=== PATIENT | female | born 1950 | race Caucasian/White ===

== ENCOUNTER → 2018-08-21 06:58 | Outpatient (CLI) | payer MEDICARE, SELFPAY ==
--- NOTE | 2018-08-21 07:03 | BI_ITS ---
MAMMOGRAPHY - BILATERAL SCREENING REASON FOR EXAM: Female, 68 years old. Routine annual screening examination. PERTINENT HISTORY: Non-contributory. TECHNIQUE: Digital bilateral breast sharron (3D mammographic acquisition) in the CC and MLO projections. 2-D mediolateral oblique (MLO) and craniocaudad (CC) views of both breasts were obtained. CAD: Full Field Digital Mammography with Computer Added Detection was performed. COMPARISON: Comparison is made with prior study dated January 16, 2013. FINDINGS: Breast Composition: There are scattered areas of fibroglandular density. There are no dominant masses or suspicious calcifications. Stable small bilateral benign appearing axillary lymph nodes. No other significant abnormalities are identified. There has been no significant change since the prior study. BI/SCREENING MAMM (CAD), BILAT IMPRESSION: Stable bilateral screening mammogram. Yearly follow-up mammogram recommended. (A) ASSESSMENT CATEGORY: BIRADS Category 2: Benign. A letter regarding these results will be sent to the patient by the facility within 30 days. Approximately 10% of breast cancers are not detected by mammography. A normal mammogram should not delay biopsy of a clinically suspicious abnormality. [id number] Electronically Signed: Warren Ayala MD at 8:28 EST Tel [phone], Service support ,
--- OUTSIDE RECORDS SUMMARY | 2018-10-07 02:18 | XMS RPT_ITS ---
:1950 Author Organization [facility] Care Team Providers Name Role Phone Evaristo Bedolla Attending Unavailable Evaristo Bedolla Referring Unavailable Evaristo Bedolla Primary Care Unavailable Evaristo Bedolla Attending Unavailable PROBLEMS PROBLEMS DATE TYPE CONDITION / ATTENDING STATUS SOURCE CODE 06/06/2018 Admitting Unknown / Evaristo Bedolla Active [facility] UNK(Unknown) [facility] Repository PROCEDURES PROCEDURES No Procedure Records FoundRESULTS RESULTS SCREENING MAMM (CAD), Observed: 08/21/2018 Status: F Source: [place] 7:03 AM [facility] REPOSITORY [facility] Imaging Services [address] [place] [address] SCREENING MAMM (CAD), BILAT MR#: [id number] Acct: [id number] Name: MAHESH SAVAGE Rep #: [id number] : 1950 F 68 From: Warren Ayala MD PCP: Evaristo Bedolla MD Status: REG CLI Study: SCREENING MAMM (CAD), BILAT Date of Exam: 08/21/18 Exam# [id number] Ordering Dr: Evaristo Bedolla MD MAMMOGRAPHY - BILATERAL SCREENING REASON FOR EXAM: Female, 68 years old. Routine annual screening examination. PERTINENT HISTORY: Non-contributory. TECHNIQUE: Digital bilateral breast sharron (3D mammographic acquisition) in the CC and MLO projections. 2-D mediolateral oblique (MLO) and craniocaudad (CC) views of both breasts were obtained. CAD: Full Field Digital Mammography with Computer Added Detection was performed. COMPARISON: Comparison is made with prior study dated January 16, 2013. FINDINGS: Breast Composition: There are scattered areas of fibroglandular density. There are no dominant masses or suspicious calcifications. Stable small bilateral benign appearing axillary lymph nodes. No other significant abnormalities are identified. There has been no significant change since the prior study. BI/SCREENING MAMM (CAD), BILAT IMPRESSION: Stable bilateral screening mammogram. Yearly follow-up mammogram recommended. (A) ASSESSMENT CATEGORY: BIRADS Category 2: Benign. A letter regarding these results will be sent to the patient by the facility within 30 days. Approximately 10% of breast cancers are not detected by mammography. A normal mammogram should not delay biopsy of a clinically suspicious abnormality. [id number] Electronically Signed: Warren Ayala MD at 8:28 EST Tel [phone], Service support , CC: Evaristo Bedolla MD [employer] Drawer: Signed CBC W/DIFF Collected: 06/06/2018 Status: F Source: [facility] 10:15 AM [facility] [place] REPOSITORY TYPE CODE TESTS RESULT OUT OF RANGE REFERENCE UNITS LAB L200.47395 4.5-11.0 K/CU MM WBC Normal 4.7 LAB L200.78212 3.90-5.30 M/CU MM RBC Normal 5.09 LAB L200.23405 11.5-15.5 G/DL HGB Normal 15.2 LAB L200.12785 35.0-47.0 % HCT Normal 47.0 LAB L200.58944 80.0-99.0 fl MCV Normal 92.3 LAB L200.79802 32.0-36.0 GM/DL MCHC Normal 32.3 LAB L200.47149 11-14.5 RDW Normal 13.7 LAB L200.41004 9.4-12.4 MPV Normal 10.2 LAB L200.41154 150-450 K/CU MM PLT Normal 260 LAB L200.16341 45-75 % NEUTROPHILS Normal % 61.4 LAB L200.44476 Less than 2 % IMMATURE Normal GRAN % 0.0 LAB L200.68240 20-40 % LYMPH % Normal 25.6 LAB L200.19461 2-10 % MONOCYTE % Normal 9.0 LAB L200.28184 0-5 % EOSINOPHIL Normal % 3.4 LAB L200.46228 0-2 % BASOPHIL % Normal 0.6 LAB L200.93327 2.0-8.3 K/CU MM NEUTROPHIL Normal ABS 2.90 LAB L200.87958 Less than 2 K/CU MM IMMATR GRAN Normal ABS 0.00 LAB L200.21675 0.9-4.4 K/CU MM LYMPH ABS Normal 1.20 LAB L200.75279 0.1-1.1 K/CU MM MONO ABS Normal 0.40 LAB L200.72063 0-0.5 K/CU MM EOS ABS Normal 0.20 LAB L200.46487 0-0.2 K/CU MM BASO ABS Normal 0.00 LAB L200.05794 Less than 1 % NRBC Normal 0.4 Performed By: #### L200.19819 #### [facility] [address] [place] [address] UA COMPLETE Collected: 06/06/2018 Status: F Source: [facility] 10:15 AM [facility] REPOSITORY TYPE CODE TESTS RESULT OUT OF REFERENCE UNITS RANGE LAB L600.85049 UA COLOR Normal Yellow LAB L600.34330 CLEAR UA Normal APPEARANCE Clear LAB L600.23862 1.005-1.030 UA SPEC Normal GRAV 1.017 LAB L600.43146 UA PH Normal 7.0 LAB L600.82312 UA GLUCOSE Normal NEG LAB L600.44008 UA KETONE Normal NEGATIVE LAB L600.87539 UA Normal BILIRUBIN NEGATIVE LAB L600.96005 UA Normal UROBILINOGEN 2.0 LAB L600.36072 NEGATIVE UA PROTEIN Normal NEGATIVE LAB L600.50583 NEGATIVE UA BLOOD Normal NEGATIVE LAB L600.86190 NEGATIVE UA NITRITE Normal NEGATIVE LAB L600.41811 NEGATIVE UA LK Normal ESTERASE NEG Performed By: #### L600.48501 #### [facility] [address] [place] [address] CMP Collected: 06/06/2018 Status: F Source: [facility] 10:15 AM [facility] [place] REPOSITORY TYPE CODE TESTS RESULT OUT OF RANGE REFERENCE UNITS LAB L500.91013 136-145 MMOL/L Normal NA 140 LAB L500.67233 3.5-5.1 MMOL/L Normal K 4.4 LAB L500.89142 98-107 MMOL/L Normal CL 106 LAB L500.10625 21-32 MMOL/L Normal CO2 28 LAB L500.68269 5-16 MMOL/L Normal AGAP 6 LAB L500.48374 70-100 MG/DL Normal GLU 84 Result Comment: 70-100- Normal Fasting; 100-125 Impaired Fasting; greater than 126 on more than one result- Diabetes. ADA guidelines. Results may be falsely elevated after the administration of Sulfapyridine. Results may be falsely depressed after the administration of Sulfasalazine. LAB L500.20301 7-26 MG/DL Normal BUN 19 LAB L500.13772 0.510-0.950 MG/DL Normal CREAT 0.658 Result Comment: Patients receiving either N-Acetylcysteine (NAC) or Metamizole prior to venipuncture, may have falsely depressed results. LAB L500.23721 15-24 High BUN/CREA 29 LAB L500.52078 6.0-8.5 GM/DL Normal TP 7.3 LAB L500.23479 3.2-5.0 GM/DL Normal ALBUMIN 4.2 LAB L500.98238 2.2-4.2 GM/DL Normal GLOBULIN 3.1 LAB L500.97058 0.8-2.0 Normal A/G RATIO 1.4 LAB L500.00797 8.5-10.1 MG/DL Normal CALCIUM TOTAL 9.3 LAB L500.69405 0.2-1.0 MG/DL High BILI TOTAL 1.5 LAB L500.74483 8-34 U/L High SGOT (AST) 35 Result Comment: RESULTS MAY BE FALSELY DEPRESSED AFTER THE ADMINISTRATION OF SULFASALAZINE AND/OR SULFAPYRIDINE. LAB L500.92953 13-61 IU/L Normal SGPT (ALT) 49 Result Comment: RESULTS MAY BE FALSELY DEPRESSED AFTER THE ADMINISTRATION OF SULFASALAZINE AND/OR SULFAPYRIDINE. LAB L500.65316 45-117 U/L Normal ALK PHOS 89 Performed By: #### L500.38308, L500.89506, L500.79744 #### [facility] [address] [place] [address] GFR EST Collected: 06/06/2018 Status: F Source: [facility] 10:15 AM [facility] REPOSITORY TYPE CODE TESTS RESULT OUT OF RANGE REFERENCE UNITS LAB L500.86081 ML/MIN Normal IF non-AFR Greater than AMER 60 LAB L500.60828 ML/MIN Normal IF Greater than AMER 60 Performed By: #### L500.35849, L500.40009, L500.31638 #### [facility] [address] [place] [address] LIPID Collected: 06/06/2018 Status: F Source: [facility] 10:15 AM [facility] REPOSITORY TYPE CODE TESTS RESULT OUT OF RANGE REFERENCE UNITS LAB L500.62276 30-149 MG/DL Normal TRIG 124 Result Comment: Patients receiving either N-Acetylcysteine (NAC) or Metamizole prior to venipuncture, may have falsely depressed results. LAB L500.62507 0-199 MG/DL Normal CHOL 199 LAB L500.05631 GREATER TN 40 MG/DL Normal HDL DIRECT 44 Result Comment: Patients receiving Metamizole prior to venipuncture, may have falsely depressed results. LAB L500.17871 0-129 MG/DL High LDL 130 Result Comment: ___CHOLESTEROL/HDL RATIO RISK___ CHD RISK = Total CHOL LDL HDL (CHOL/HDL) Recommended <200 <130 >35 <3.4 Borderline 200-239 130-159 3.4-4.99 High >240 >160 >5.0 Performed By: #### L500.11671, L500.59508, L500.63323 #### [facility] [address] [place], [place] [id number] # [phone] ALLERGIES ALLERGIES No Allergies Records FoundENCOUNTERS ENCOUNTERS ADMIT/DISCHARGE ACCOUNT ADMITTING ENCOUNTER LOCATION SOURCE NUMBER CLASS 08/21/2018 [id number] Ambulatory Bere Bere 3 [facility] ing:OPBI Repository 06/06/2018 [id number] Ambulatory [address] g:NEGAR Repository PAYERS PAYERS ENCOUNTER GUARANTOR PAYER SUBSCRIBER SOURCE 08/21/2018 MAHESH [address] Insurance:HUMANA REIDENBACHDOB: Community [employer] MEDICARE PPOPolicy [id number] Number: Repository [address]Fno: 330 [id number] [phone] () Date:[id number] [address]AJ: 08/21/2018 Secondary NOT GIVENUNK Bere Insurance:SELF PAY [facility] Number: Effective Repository Date:2018-07-08 06/06/2018 MAHESH Cain [facility] [id number] Insurance:[facility]NA [facility] PPO MCPolicy Repository [address] [place] [address] Number: [id number]: 330 [id number] [phone] (HP) Date:[id number] [address] [address]SQ:
== END ==
PROVIDERS: Family Provider Family Medicine; PCP Family Medicine; Referring Provider Family Medicine; Visit Provider Family Medicine
DX: Z12.31 Encounter for screening mammogram for malignant neoplasm of breast (principal)
CPT/HCPCS: 77063; 77067

== ENCOUNTER → 2019-10-20 12:18 | Outpatient (CLI) | payer MEDICARE, SELFPAY ==
--- NOTE | 2019-10-20 12:21 | BI_ITS ---
MAMMOGRAPHY - BILATERAL SCREENING REASON FOR EXAM: Female, 69 years old. Routine annual screening examination. PERTINENT HISTORY: Non-contributory. TECHNIQUE: Digital bilateral breast leila (3D mammographic acquisition) in the CC and MLO projections. 2-D mediolateral oblique (MLO) and craniocaudad (CC) views of both breasts were obtained. CAD: Full Field Digital Mammography with Computer Added Detection was performed. COMPARISON: Comparison is made with prior study dated August 21, 2018 and January 16, 2013. FINDINGS: Breast Composition: There are scattered areas of fibroglandular density. There are no dominant masses or suspicious calcifications. Stable benign appearing bilateral axillary lymph nodes. No other significant abnormalities are identified. There has been no significant change since the prior study. BI/SCREEN MAMM (CAD) W/LEILA BILAT IMPRESSION: Stable bilateral screening mammogram. Yearly follow-up mammogram recommended. (A) ASSESSMENT CATEGORY: BIRADS Category 2: Benign. A letter regarding these results will be sent to the patient by the facility within 30 days. Approximately 10% of breast cancers are not detected by mammography. A normal mammogram should not delay biopsy of a clinically suspicious abnormality. [id number] Electronically Signed: Warren Ayala, at 13:45 EST , Service support ,
== END ==
PROVIDERS: PCP Family Medicine; Referring Provider Family Medicine; Visit Provider Family Medicine
DX: Z12.31 Encounter for screening mammogram for malignant neoplasm of breast (principal)
CPT/HCPCS: 77063; 77067

== ENCOUNTER 2021-03-09 15:35 | Observation (INO) | payer MEDICARE, SELFPAY ==
--- NOTE | 2021-02-25 07:46 | HP.PCM_ITS ---
History and Physical History and Physical [facility] Patient Name: Betsy Cerna : 1950 From: CHARLETTE DUKE PA-C DATE OF SURGERY: 03/09/2021 SCHEDULED PROCEDURE: left total hip arthroplasty HISTORY OF PRESENT ILLNESS: Preoperative history and physical exam was performed on February 24, 2021. This is a 70-year-old female who is been having ongoing pain in the left hip since 2014. She states her pain has been intermittent, aching, stabbing. She has increased pain going up and down stairs, sitting, and walking. She does have left groin pain that radiates through her whole thigh. Her pain does not extend below her knee. Patient does have history of low back pain. She denies any current numbness or tingling in the bilateral lower extremities. Patient has difficulty with activities of daily living including bathing/showering, getting dressed, housework, and shopping. She has fallen due to the left hip pain. She has difficulty walking down to the mailbox due to the pain. Patient states she has not worn socks over a year due to the difficulty putting them on. The pain does awaken her at night. She has attempted oral medications including prescription for nabumetone which did provide her with some relief for about 1 year but no longer is been providing relief. Patient reports that the pain has been severely affecting her activities of daily living. She has been unable to participate in water aerobics or kari chi for over a year due to the pain. She denies previous surgery on the left hip. Patient has medical history pertinent for depression. She does report having superficial phlebitis after her but reports no history of DVT and was never on any anticoagulation. Patient denies any recent chest pain, shortness of breath, fevers chills or recent infections. We have obtain surgical clearance from the primary care physician Dr. Bedolla. After failing conservative measures and discussing all treatment options, the patient does wish to proceed with a left total hip arthroplasty. REVIEW OF SYSTEMS: ROS: Const: Reports weight change, but denies change in appetite and fever. CV: Denies chest pain, heart murmur and irregular heartbeat. Resp: Denies cough, pneumonia, shortness of breath, tuberculosis and wheezing. GI: Reports diarrhea and heartburn, but denies constipation, nausea, rectal itching, bloody stools and vomiting. : Reports incontinence. Musculo: Reports swelling, but denies leg swelling, pain, trouble walking and weakness. Skin: Denies Raynaud's, history of shingles and tattoo. Neuro: Reports ambulatory dysfunction and numbness/tingling but denies dizziness and tremor. Psych: Denies anxiety, insomnia and stress. Rohit/Lymph: Reports anemia, but denies bleeding/bruising tendency and past transfusion. Reviewed, no changes. PAST MEDICAL HISTORY: Advance Care Plan: No Advance Directives Effective Date: 01/10/2021 PMH: Medical Problems: Arthritis, Depression Phlebitis - WHEN Labrynthitis Accidents: None Surgical Hx: Hysterectomy Anesthesia Complications: None Assistive Devices: Glasses Reviewed and updated. SOCIAL HISTORY: SH: Marital: .Occupation: Retired.Work Status: Retired.Hand Dominance: Right- handed. Personal Habits: Cigarette Use: Never Smoked Cigarettes.Smokeless Tobacco: Never Used Smokeless Tobacco.E-Cigarette Use: Never used.Alcohol: Denies u se.Drug Use: Denies Use.Enjoy Exercising: Exercises 1-3 x/month. Reviewed, no changes. VITALS: Ht: 60 Wt: 273lb Wt k.833 BMI: 53.3 BP: 118/68 Pulse: 68 Resp: 16 T: 97.8 T: 36.6C ALLERGIES: No Known Drug Allergy MEDICATIONS: Sertraline HCL 100 mg 1 by mouth every day, Vitamin C 500 mg 1/2 TAB by mouth every day, Vitamin D3 50 mcg (2000 Ut) 1 by mouth every day, Elderberry 1po qday, Advil 200 mg 4 tablets 1-2x daily as needed PRE-OP EXAM: General appearance:NORMAL Other: Eyes: Conjunctivae and lids: NORMAL Pupils: ERR Ears, Nose, Mouth, and Throat: NORMAL Other: Inspection of lips, teeth and gums: NORMAL Other: Neck: Examination of neck: no masses noted. Respiratory: Assessment of respiratory effort: NORMAL Other: Auscultation of lungs: clear to auscultation no wheezes, rhonchi or rales. Cardiovascular: Auscultation of heart: regular rate and rhythm, no murmurs, gallops or rubs. Exam of carotid arteries: NORMAL Other: Gastrointestinal: Exam of abdomen: soft, nontender, nondistended bowel sounds present. PHYSICAL EXAMINATION: Patient's right hip is cool to touch without erythema or signs of infection. Patient is nontender to palpation over the lateral hip. She does complain of left groin pain. Flexion 70, internal rotation neutral, external rotation 30. Right hip flexion to 90, internal rotation 20, and x-rays are rotation 40. She currently denies any numbness and tingling in the bilateral lower extremities. She does have bilateral lower extremity venous stasis changes of the skin with pitting edema. Currently nontender to palpation throughout the lumbar paraspinals. IMAGING STUDIES: X-rays of the left hip reveal severe [id number] osteoarthritis with joint space narrowing, subchondral sclerosis, subchondral cyst formation in the femoral head. 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 Previous x-rays the lumbar spine revealed disc space narrowing with L4-L5 and L5-S1 with endplate spurring off the anterior lumbar vertebral bodies. IMPRESSION: 1. Severe left hip osteoarthritis 2. Depression 3. Labyrinthitis 4. History of superficial phlebitis 5. Lumbar degenerative disc disease PLAN: I did discuss and review with the patient all treatment options including surgical versus nonsurgical options. Patient does wish to proceed with the above-stated procedure. Potential risks, benefits, and complications of the procedure were discussed in detail including but not limited to , infection, nerve and blood vessel damage, persistent pain, numbness, tingling, paresthesias, blood clot, pulmonary embolism, and requirement for possible further surgery. The patient expressed full understanding and has no further questions for the doctor. Patient does agree to proceed with the above-stated procedure and has signed the surgery consent form. We discussed the current risks associated with COVID 19. This does include the risk of exposure while in the hospital. Patient was reassured local hospitals have low infection rates and are taking all necessary precautions to avoid exposure to patients. In addition, we discussed strategies that can be used to help limit exposure including those that limit the patient's time in the hospital. Also using strategies to limit the patient's need for continued inpatient services after being discharged from the hospital. Patient was notified that we will need to comply with any screening or testing the hospital wishes to perform or that surgery may be delayed for any positive results. This dictation was created using voice recognition software. Phonetic and/or grammatical errors may exist. ___ I have re-examined the patient. There are no clinical changes since date of exam. ___ See progress notes for changes. ___ Dictated on admission Date: Time: Signature:
[2021-03-09] VITALS (9 sets, daily range): BP systolic 97–139; BP diastolic 47–88; PULSE 81–96; RESP 14–18; TEMP 36.2–36.9; O2SAT 92–100; BMI 32.8
[2021-03-09] MEDS: Lactated Ringers 1,000 ML 100 ML IV (08:15)
[2021-03-09 10:31] LABS: Bedside Glucose 100 mg/dL (70-110)
[2021-03-09] MEDS: Acetaminophen 500 MG Tablet 1000 MG PO ×2 (10:38→20:34)
[2021-03-09] MEDS: Celecoxib 200 MG Capsule 400 MG PO (10:38)
[2021-03-09] MEDS: Lactated Ringers 1,000 ML 999 ML IV ×2 (10:39→14:00)
[2021-03-09] MEDS: Gabapentin 600 MG Tablet PO (10:39)
[2021-03-09 10:55] LABS: Magnesium 2.3 mg/dL (1.6-2.6)
[2021-03-09 10:59] LABS: International Normalized Ratio 1.1; Partial Thromboplast Time 28.6 Seconds (24.1-36.2); Prothrombin Time (Protime)PT. 13.1 SECONDS (11.7-14.9)
--- NOTE | 2021-03-09 12:14 | PCM.OPRPT ---
Report of Operation Date of Procedure: 03/09/21 Pre-Operative Diagnosis: Left hip primary osteoarthritis Post-Operative Diagnosis: Left hip primary osteoarthritis Surgery/Procedure Performed:: Left minimally invasive direct anterior hip replacement Description of Surgical Findings:: Stable hip with equal leg lengths Surgeon: Juan M Ramírez sales analytics manager: Aryan Naik Type of Anesthesia: Spinal Anesthesiologist: Trey Ann Special Medications: 2 g Ancef, 1 g TXA at incision, 1 g TXA closure, 10 mg Decadron, joint cocktail (5 mg Duramorph, 30 mL of 0.5% Ropivicaine, 1000 units of epinephrine, 30 mg of Toradol) Specimen's removed: Bony cuts Estimated Blood Loss (mL): 250 Fluids Replaced: 1200 mL crystalloid Description of Procedure: Components used: 1. Accolade 2 Sperry femoral stem size 3 127? 2. Sperry trident 2 acetabular shell size 48 mm 3. Meron X3 polyethylene D 4. Meron Biolox delta 36mm, 2.5mm femoral head Brief history operative indications: 70 yo F who failed conservative measures for their hip osteoarthritis. X-rays were consistent with osteoarthritis including joint space narrowing, osteophyte formation and subchondral cysts. Total hip replacement was discussed with the patient with risks and benefits including but not limited to blood loss, DVTs, PEs, neurovascular damage, dislocation, general risks of anesthesia including loss of life. Patient demonstrated an understanding medical clearance is obtained the patient was consented for surgery. Procedure: On the date of procedure the patient's L hip was marked in the preoperative area. Patient was then taken back to the operating room where anesthesia assumed control of the C-spine and airway and administered anesthetic. Patient was transferred to the operating table and placed in the supine position. The hips were placed at the break of the bed and a sacral bump was placed. L The lower extremity was then prepped out in a sterile fashion using chlorhexidine while the surgeon scrubbed. The PA was vital in the positioning of the patient. Upon reentering the room the left lower extremity was draped in the standard orthopedic fashion and the incision was marked. A timeout was called and everyone agreed upon the side, the site, the procedure be performed, antibody given, and patient's identity. At this time incision was made through skin, subcutaneous tissue, and fat down to fascia. The fascia was then incised and the TFL was retracted laterally. A retractor was placed on the lateral border of the femoral neck. Attention was directed to the inferior portion of the approach and all crossing vessels were identified and appropriately coagulated. A retractor was then placed on the medial portion of the femoral neck. The anterior capsule was then cleared of all soft tissue and then H shaped capsulotomy was made. The retractors were then placed inside the capsule. The femoral neck was identified and a cleanup cut was made. At this time a power corkscrew was used to remove the femoral head. Attention was then turned toward the acetabulum where the soft tissues were appropriately retracted and the acetabulum was sequentially reamed to 48 mm. A 48 mm cup was then selected and impacted into place. Acetabular liner was impacted into place and locking mechanism was verified. The position of the acetabular cup was then verified under live fluoroscopy. Attention was then turned to the femur. Soft tissue releases on the medial and lateral femoral neck were appropriately done, the leg was externally rotated and lateralized. A Nice retractor was placed medially and proximally to the greater trochanter this allowed appropriate visualization and exposure of the femoral canal. Rongeour was then used to remove excess lateral bone. A canal finder and entry broach were used to open the proximal canal. Once we verified we were down the femoral canal we subsequently broached up to a size 3 femur. The appropriate neck was placed in the previously selected head was trialed with a 2.5 mm neck. Traction was pulled and the hip was reduced with internal rotation. Once it was appropriately reduced and stability was checked. There was minimal shuck, equal leg lengths and appropriate stability with hyperextension and external rotation as well as with 90? flexion and internal rotation. Fluoroscopy was then also used to verify the position of the components and leg lengths using the contralateral side for comparison. The trial components were then dislocated the proximal femur was again exposed and the components were removed from the wound. The final components were verified and opened. The wound was copiously irrigated out with normal saline. The acetabulum was checked for any residual debris. The final components were placed and impacted. Traction and internal rotation were again used to reduce the hip. After adequate reduction the hip remained stable with appropriate leg lengths. The final components were once again checked with live fluoroscopy and were found to be satisfactory. The wound was then copiously irrigated with normal saline once more, and hemostasis was obtained. Closure was then done using #1 Vicryl runner to close the fascia. A 2-0 vicryl interuppted sutures were used to close the subcutaneous skin. A 3-0 Monocryl and Steri-Strips were used for final skin closure. A Silverlon dressing was placed. Patient was awakened by anesthesia and transferred to the [facility]. Patient was then transferred to the PACU for recovery. Postoperative plan: Patient will get 24 hours postop antibiotics. Patient will get in-house physical therapy and will be weight-bear as tolerated. Patient will follow up in office in 2 weeks for a wound check and x-rays. Aspirin 81 mg twice daily. During the course of the procedure the physician mat machine operator (PE) played a vital role. Their intimate knowledge of my steps in the procedure aided in safe and expedient completion of the procedure. The PE played a vital rolls in positioning particularly in obtaining the appropriate positioning of the sacral bump. The PE was also vital in the retraction of soft tissues during the exposure and especially the femoral work as this is a vital part of the procedure to prevent complications and fractures. The PE was also vital and protecting soft tissues during times of bony cuts and reaming. He also played a vital role in closure with my direct supervision. The PE was also important during reduction and dislocation of the joint and trials intraoperatively. Complications No intraoperative complications Admit VTE Documentation VTE Present on Admission: No VTE Mechan Device Prophylaxis: SCD's and Thigh High NADEEN Hose VTE Pharm Prophylaxis ordered?: Yes
[2021-03-09] MEDS: dexAMETHasone 10 MG/ML Vial IV (12:25)
--- NOTE | 2021-03-09 12:30 | RAD_ITS ---
STUDY: X-RAY - PELVIS AND LEFT HIP REASON FOR EXAM: Fluoroscopic guidance for left hip arthroplasty. TECHNIQUE: 2 intraoperative images of the pelvis and hip. COMPARISON: Radiographs 09/22/2014. FINDINGS: There is a left hip arthroplasty without evidence of complication. 3.4 seconds of fluoroscopy time was used. Electronically Signed: Jovany Israel MD at 14:54 EDT Tel , Service support , RAD/Hip 1 view with Pelvis
--- NOTE | 2021-03-09 14:15 | RAD_ITS ---
STUDY: X-RAY - PELVIS AND LEFT HIP REASON FOR EXAM: Postop left hip arthroplasty. TECHNIQUE: 2 views of the pelvis and hip. COMPARISON: Radiographs 09/22/2014. FINDINGS: There is postoperative gas in the soft tissues. Normal bilateral superior and inferior pubic rami. Normal pubic symphysis. Normal bilateral ischial tuberosities. There is a left hip arthroplasty without evidence of complication. RAD/Hip Min 2 Views (Portable) IMPRESSION: Uncomplicated left hip arthroplasty. Electronically Signed: Jovany Israel MD at 14:47 EDT Tel , Service support ,
[2021-03-09] MEDS: Lactated Ringers 1,000 ML 125 ML IV (15:11)
--- NOTE | 2021-03-09 16:00 | PCM.PN.HOSP ---
Subjective Subjective 70-year-old female here for left hip replacement secondary to osteoarthritis. Tolerated surgery well. No issues. Objective Data Objective Data Vital Signs: Vital Signs Temp Pulse Resp BP Pulse Ox 97.9 F 86 18 117/47 L 98 03/09/21 15:19 03/09/21 15:19 03/09/21 15:19 03/09/21 15:19 03/09/21 15:19 Oxygen Flow Rate (L/min) 6 Oxygen Delivery Method Room Air Weight: 173 lb 11.588 oz Body Mass Index (BMI) 32.8 Intake & Output: Intake and Output for Last 24 Hours 03/08/21 03/09/21 03/10/21 03:59 03:59 03:59 Intake Total 3534.17 / 3534.17 Output Total 400 / 400 Balance 3134.17 / 3134.17 Lab / Micro Data Labs: Laboratory Results - last 24 hr 03/09/21 03/09/21 03/09/21 10:08 10:17 10:40 PT 13.1 INR 1.1 APTT 28.6 Magnesium 2.3 POC Glucose 100 Radiography Diagnostic Testing: Radiology Impression Hip/Pelvis X-Ray 03/09/21 12:30 Hip X-Ray 03/09/21 14:15 IMPRESSION: Uncomplicated left hip arthroplasty. Electronically Signed: Jovany Israel MD at 14:47 EDT Tel , Service support , Physical Exam Const alert, oriented x3 and no apparent distress General Appearance: cooperative HEENT normocephalic Mouth: dry mucous membranes Eyes PERRL, EOMs intact bilaterally and conjunctivae normal Neck supple and no JVD Resp normal respiratory effort, no retractions, no use of accessory muscles and clear to auscultation bilaterally Auscultation: Negative for crackles, rales, rhonchi or wheezes Cardio regular rate, regular rhythm, S1 normal heart sound, S2 normal heart sound and no murmurs GI soft to palpation, non-tender and non-distended; Negative for hepatosplenomegaly Extremity no clubbing, cyanosis or edema Skin no rashes or lesions noted Skin Narrative: Incision CDI Neuro no focal motor deficits and no sensory deficits noted Psych affect normal Appearance: appropriate Assessment & Plan Assessment/Plan (1) Status post left hip replacement: PLAN: 1. Left total hip replacement 03/09/2021 -Pain per primary -DVT per primary -PT/OT 2. Depression -Stable -Continue Zoloft DVT: Aspirin twice daily Charges/Coding Visit Charges OBSV E&M: 16442 Subsequent observation care L2
[2021-03-09] MEDS: Ensure Surgery 237 ML LIQUID PO (18:00)
[2021-03-09] MEDS: Aspirin 81 MG TAB.CHEW PO (18:01)
[2021-03-09] MEDS: Cefazolin 1 GM/50 ML BAG IV (20:33)
[2021-03-09] MEDS: Senna/Docusate Sodium 1 Tablet 2 TABLET PO (20:34)
[2021-03-10 03:05] VITALS: BP 103/52; PULSE 68; RESP 16; TEMP 36.6; O2SAT 99
[2021-03-10] MEDS: Cefazolin 1 GM/50 ML BAG IV (03:48)
[2021-03-10] MEDS: Acetaminophen 500 MG Tablet 1000 MG PO ×2 (05:53→13:50)
[2021-03-10 06:53] LABS: Hematocrit 36.7 % (37-47); Hemoglobin 12.1 g/dL (12.0-15.0); Mean Corpuscular Hgb 30.1 pg (27.0-32.0); Mean Corpuscular Volume 91.3 fL (81-99); Platelet Count 250 K/mm3 (150-450); RBC Distribution Width CV 13.4 % (11.6-14.6); Red Blood Count 4.02 M/mm3 (4.2-5.4); White Blood Count 14.6 K/mm3 (4.4-11.0)
[2021-03-10 07:22] LABS: Anion Gap 7 (5-15); BUN 13 mg/dL (7-18); BUN/Creat Ratio 21.8 RATIO (10-20); Calcium,Total 8.8 mg/dL (8.5-10.1); Chloride 109 mmol/L (98-107); EST Glomerular Filtration Rate 105 mL/min (>60); Est Glom Filt Rate - Afr Amer 127 mL/min (>60); Estimated Creatinine Clearance 38.94 ml/min; Glucose 120 mg/dL (74-106); Potassium 4.1 mmol/L (3.5-5.1); Sodium Level 138 mmol/L (136-145)
[2021-03-10 07:30] VITALS: BP 98/47; PULSE 66; RESP 16; TEMP 36.6; O2SAT 99
[2021-03-10] MEDS: Ensure Surgery 237 ML LIQUID PO (07:41)
[2021-03-10] MEDS: Aspirin 81 MG TAB.CHEW PO (07:42)
--- NOTE | 2021-03-10 09:04 | PCM.PN.ORT ---
Subjective Subjective The patient was sitting in bedside chair upon examination. Patient denies any chest pain, shortness of breath, dizziness, lightheadedness, nausea or vomiting, or calf pain. Pain is controlled on medications. No adverse overnight events. Overall patient has been doing well. She has been up to the restroom tolerating this well. She has not had physical therapy yet. Objective Data Objective Data Vital Signs: Vital Signs Temp Pulse Resp BP Pulse Ox 97.9 F 66 16 98/47 L 99 03/10/21 07:30 03/10/21 07:30 03/10/21 07:30 03/10/21 07:30 03/10/21 07:30 Oxygen Flow Rate (L/min) 6 Oxygen Delivery Method Room Air Weight: 78.8 kg Body Mass Index (BMI) 32.8 Intake & Output: Intake and Output for Last 24 Hours 03/08/21 03/09/21 03/10/21 23:59 23:59 23:59 Intake Total 4977.50 / 4977.50 700 / 700 Output Total 400 / 400 900 / 900 Balance 4577.50 / 4577.50 -200 / -200 Lab / Micro Data Result Diagrams: 03/10/21 06:30 03/10/21 06:30 Labs: Laboratory Results - last 24 hr 03/09/21 03/09/21 03/09/21 10:08 10:17 10:40 WBC RBC Hgb Hct MCV MCH MCHC RDW Std Deviation RDW Coeff of Nguyen Plt Count MPV PT 13.1 INR 1.1 APTT 28.6 Sodium Potassium Chloride Carbon Dioxide Anion Gap BUN Creatinine Estim Creat Clear Calc Est GFR (MDRD) Af Amer Est GFR (MDRD) Non-Af BUN/Creatinine Ratio Glucose Calcium Magnesium 2.3 POC Glucose 100 03/10/21 03/10/21 06:30 06:30 WBC 14.6 H RBC 4.02 L Hgb 12.1 Hct 36.7 L MCV 91.3 MCH 30.1 MCHC 33.0 RDW Std Deviation 45.0 H RDW Coeff of Nguyen 13.4 Plt Count 250 MPV 10.0 PT INR APTT Sodium 138 Potassium 4.1 Chloride 109 H Carbon Dioxide 22.0 Anion Gap 7 BUN 13 Creatinine 0.60 Estim Creat Clear Calc 38.94 Est GFR (MDRD) Af Amer 127 Est GFR (MDRD) Non-Af 105 BUN/Creatinine Ratio 21.8 H Glucose 120 H Calcium 8.8 Magnesium POC Glucose Radiography Diagnostic Testing: Radiology Impression Hip/Pelvis X-Ray 03/09/21 12:30 Hip X-Ray 03/09/21 14:15 IMPRESSION: Uncomplicated left hip arthroplasty. Electronically Signed: Jovany Israel MD at 14:47 EDT Tel , Service support , Physical Exam Narrative Vital signs stable and afebrile. Patient is able to plantarflex and dorsiflex actively. Sensation is intact to light touch to saphenous, sural, superficial and deep peroneal, and tibial distribution. Dressing is clean dry and intact. Negative Homans bilaterally, negative signs and symptoms of DVT. Const alert, oriented x3 and no apparent distress Assessment & Plan Assessment/Plan (1) Status post left hip replacement: PLAN: 1. S/P direct anterior left total hip arthroplasty POD #1 2. Continue Pain Medications: Tylenol, meloxicam, oxycodone 3. DVT Prophylaxis: Take 81 mg aspirin twice daily for 4 weeks postoperatively for DVT prophylaxis 4. PT/OT: Weightbearing as tolerated 5. H & H: 12.1/36.7, asymptomatic. Postoperative anemia secondary to acute blood loss from surgery without any intra operative complications. 6. Reactive leukocytosis: Currently 14.6, afebrile. Patient did receive Decadron intraoperatively 7. Continue postoperative medical management per medicine 8. Encouraged Incentive Spirometry 9. Disposition: Plan will be for discharge home today as long as patient is medically stable, pain is well controlled, and tolerates therapy. Patient has outpatient physical therapy established. Patient will follow-up per postop instructions. Patient would like her medications sent over to [facility] in [facility]. I have reviewed the [place] Automated Rx Reporting System (OARRS) report for this patient for refill pattern and other prescriber involvement as part of the appropriate surveillance for the provision of acute and chronic controlled medications. The report was requested and reviewed on the date of this entry and was considered in the prescribing process.
--- NOTE | 2021-03-10 09:06 | PCM.DC ---
Discharge Instructions Diet Discharge Diet: No restrictions Activity Discharge Activity: May Not Drive (while taking narcotic pain medications.) May shower in (days): 1 (only if incision is dry and without drainage. Do NOT soak/submerge in tub/pool/webb/stream/hot tub.)) Ice area for (Minutes): 20 (Every 1-2 hours while awake[address] place barrier between ice and skin.) Weight Bearing Status: Weight bearing as tolerated Keep extremity elevated above heart level: Operative Extremity Dressing / Incision Call your doctor if your incision/area has: Continuous Slow Oozing, Sudden Increased Bleeding, Increased Pain/ Swelling, Increased Redness and Foul Smelling Discharge Call your doctor if you observe: Fever of 101 or Higher, Shortness of breath, Chest pain, Calf discomfort and Uncontrolled pain Remove Dressing in: 4 days (Okay to remove dressing on March 14, 2021) Additional Dressing/Incision Instructions:: Follow [facility] Post-op Instructions. Once postoperative dressing has been removed, only use gentle soap and water over the incision. Do not use any ointments, Neosporin, salves, alcohol pads over the incision for 6 weeks postoperatively. Do not submerge underwater for 6 weeks postoperatively. Continue with NADEEN hose/elastic stockings for 2 weeks postoperatively. May remove at nighttime but needs to be placed back on the leg during the day. Do NOT use alcohol with narcotic pain medication. Do NOT make important decisions while taking narcotic medication. If you have problems with taking your medication (rash, itching, nausea, etc.) call the office at once. Follow Up Care Test Results: Test results from this visit will be discussed in further detail at your follow-up appointment, if applicable. Discharge Plan Admission Admit Date/Time: 03/09/21 15:35 Attending Provider: Juan M Ramírez Primary Care Provider: Evaristo Bedolla Consulting Providers: Arun Isaacs Discharge Orders/Prescriptions Prescriptions: New aspirin 81 mg Tablet,Chewable 81 mg PO BIDCM Qty: 60 RF: 0 acetaminophen 500 mg Tablet 1,000 mg PO Q8 Qty: 100 RF: 0 famotidine 20 mg Tablet 20 mg PO DAILY Qty: 30 RF: 0 meloxicam 7.5 mg Tablet 7.5 mg PO BIDCM Qty: 60 RF: 0 oxycodone 5 mg Tablet 5 - 10 mg PO Q4H PRN PRN (Reason: Pain Score 4-10) 4 Days Qty: 48 RF: 0 sennosides-docusate sodium [Stool Softener-Stimulant Laxat] 8.6-50 mg Tablet 2 tab PO BID Qty: 14 RF: 0 Continued sertraline 100 mg Tablet 100 mg PO DAILY RF: 0 ascorbic acid (vitamin C) [Vitamin C] 500 mg Tablet 500 mg PO DAILY RF: 0 elderberry fruit 200 mg Capsule 200 mg PO DAILY RF: 0 cholecalciferol (vitamin D3) [Vitamin D3] 50 mcg (2,000 unit) Capsule 50 mcg PO DAILY RF: 0 Discontinued ibuprofen [Advil Liqui-Gel] 200 mg Capsule 400 mg PO Q8H PRN (Reason: Pain) RF: 0 Referrals / Follow Up: Evaristo Bedolla MD [Primary Care Provider] - Aryan Naik PA-C [PHYSICIAN [employer]] - 03/25/21 1:45 pm Physical,Therapy [Other] - 03/15/21 1:30 pm Disposition Disposition (needs filled in before D/C Order can be placed): Home, Self Care
[2021-03-10] MEDS: Senna/Docusate Sodium 1 Tablet 2 TABLET PO (10:36)
[2021-03-10] MEDS: Ascorbic Acid 500 MG Tablet PO (10:36)
[2021-03-10] MEDS: Famotidine 20 MG Tablet PO (10:36)
[2021-03-10] MEDS: Cholecalciferol (VIT D3) 25 MCG TABLET (1,000 UNITS) 50 MCG PO (10:36)
[2021-03-10] MEDS: Sertraline 100 MG Tablet PO (10:37)
--- NOTE | 2021-03-10 10:40 | CASEMGMT ---
NOHEMI BURRELL Face to Face with patient for initial transition planning/care coordination assessment. RN INDRA introduced self and role at [facility]. Patient lying in bed, alert and oriented. Patient willing to participate in assessment and is able to answer all questions appropriately. Care providers, pharmacy, and demographics verified. Patient wishes to discharge home, and is setup for outpatient therapy at [facility]. Patient states she has no further needs or concerns at this time. CM to follow for discharge planning needs that may arise. PCP: Graeme Specialists: linda Ramírez Pharmacy: [facility] Insurance: indico Prescription Benefit: yes Living Will/HPOA: none LNOK: Living Arrangements: Patient lives with in a mobile home with 4 steps and railing to enter the home. Patient states she was independent for selfcare prior to surgery Transportation: daughter DME/HHC: Patient has shower chair, raised toilet, lift chair, grab bars, hand held shower, hip kit, and walker. Patient is setup with [facility] for outpatient therapy starting Sunday Disposition Plan: Patient to discharge home with outpatient therapy, family support, and follow-up plans in place. Mari TOBAR, RN, CM
[2021-03-10 13:44] VITALS: BP 120/62; PULSE 85; RESP 16; TEMP 36.7; O2SAT 100
== END 2021-03-10 15:15 | disposition home or self-care (01) ==
LOC: SDC 15:59 → MS3 15:59
PROVIDERS: Anesthesiology; Admitting Provider Specialist; PCP Family Medicine; Referring Provider Specialist; Visit Provider Internal Medicine
PROC: (CPT 27284; principal; 2021-03-09 11:35)
DX: M16.12 Unilateral primary osteoarthritis, left hip (principal); F32.9 Major depressive disorder, single episode, unspecified; Z79.899 Other long term (current) drug therapy; H83.09 Labyrinthitis, unspecified ear; M51.36 Other intervertebral disc degeneration, lumbar region
CPT/HCPCS: 27130; 36415; 73501; 73502; 76000; 80048; 82962; 83735; 85027; 85610; 85730; 96365; 96366; 97110; 97116; 97162; 97166; 97530; 97535; 99218; 99251; C1776; J7120; G0378; G0379; G0463

== ENCOUNTER 2022-04-21 17:49 | Emergency (ER) | payer MEDICARE, SELFPAY ==
[2022-04-21 17:50] VITALS: BP 125/77; PULSE 85; RESP 14; TEMP 37.2; O2SAT 97; BMI 31.1
[2022-04-21 18:00] VITALS: BP 125/77; PULSE 85; RESP 14; TEMP 37.2; O2SAT 97
--- NOTE | 2022-04-21 18:26 | EDS_ITS ---
HPI History of Present Illness Chief Complaint: Wound Narrative Narrative: 72-year-old female with no significant medical history presents to the emergency department with concern of infection of the left lower extremity. On 09 April, the patient had a significant laceration to the distal aspect of the tibia on the anterior side. Patient has 12 sutures remaining, patient did go back for redness to the infection site, blister. They did take fluid from the blister. Patient continues to have redness surrounding the area that is warm and tender to the touch. Patient was placed on Augmentin and has been on 4 days. Patient states that over the last 4 days there has not been much improvement. The skin is now black, sutures are still intact. It is more painful, more red. Patient has no drainage from the area peer denies any fevers or chills [facility] Medical History Anemia Anxiety Arthritis Heartburn History of depression History of edema History of IBS Migraine headache Non-smoker Restless legs Shortness of breath on exertion Wears glasses Home Medications ascorbic acid (vitamin C) 500 mg tablet (Vitamin C) 500 mg PO DAILY supplement 02/25/21 [History Last Taken Unknown] cholecalciferol (vitamin D3) 50 mcg (2,000 unit) capsule (Vitamin D3) 50 mcg PO DAILY 02/25/21 [History Last Taken Unknown] elderberry fruit 200 mg capsule 200 mg PO DAILY supplement 02/25/21 [History Last Taken Unknown] sertraline 100 mg tablet 100 mg PO DAILY anxiety 02/25/21 [History Last Taken Unknown] amoxicillin 500 mg-potassium clavulanate 125 mg tablet (Augmentin) 1 tab PO TID 04/21/22 [History Last Taken Unknown] sulfamethoxazole 800 mg-trimethoprim 160 mg tablet (Bactrim DS) 1 tab PO BID #20 tabs 04/21/22 [Rx Last Taken Unknown] tolterodine 2 mg capsule,extended release 24 hr (Detrol LA) 2 mg PO DAILY 04/21/22 [History Last Taken Unknown] Allergy/AdvReac Type Severity Reaction Status Date / Time No Known Allergies Allergy Verified 04/21/22 17:50 Surgical History History of hysterectomy Social History Smoking Status: Never smoker ROS ROS ED ROS Narrative Constitutional: Negative for fever, chills, weight loss, weakness Eyes: Negative for vision loss, vision change, double vision ENT: Negative for any sore throat, ear pain, congestion Cardiovascular: Negative for any chest pain, tightness, palpitations Respiratory: Negative for any cough, sputum production, hemoptysis, dyspnea, dyspnea on exertion, orthopnea Gastrointestinal: Negative for any abdominal pain, nausea, vomiting, diarrhea, constipation, blood in stool, blood in vomit : Negative for any urinary frequency, dysuria, retention, blood in urine Muscle skeletal: Negative for any muscle joint pain, stiffness, myalgias, arthralgias, neck pain, back pain. Pain to the left lower extremity Neurological: Negative for any headache, syncope, numbness or tingling, dizziness Skin: Negative for any rashes, lumps, itching, abrasions, lacerations. Positive healing wound to the left tibia, redness to the area, pain. Psychiatric: Negative for any depression, anxiety, stress, suicidal ideation, homicidal ideation Hematologic: Negative for any easy bruising, excessive bruising, easy bleeding Allergies: Negative for any eczema, hives, rash EXAM Physical Exam Narrative Exam Narrative: Vital signs reviewed. Patient appears well, patient appears nontoxic, vital signs are stable. HEET: Head normocephalic atraumatic, TMs clear bilaterally. Posterior pharynx is clear, moist mucous membranes. Nares clear bilaterally. Neck: Supple with no lymphadenopathy or tenderness. No signs of meningismus, negative jolt sign. Cardiac: Regular rate and rhythm no murmurs gallops or rubs, equal peripheral pulses bilaterally. Respiratory: Lungs clear to auscultation bilaterally. No chest tenderness. Abdomen: Soft, nontender, nondistended. No abdominal bruit or pulsatile masses. No hepatosplenomegaly Extremities: Patient has a wound on the anterior aspect of the distal tibia, there is 12 sutures that are intact. The skin flap shows some eschar, no fluctuance, no abscess. The surrounding area does show cellulitis, there is warmth to the distal patella to the top of the foot. Patient has pain on palpation. She states that over the last 2 to 3 days the redness has stayed the same has not improved. Patient's been on 4 days of Augmentin. Neuro: Cranial nerves II through XII intact, no focal neurological deficits. Skin: Clean dry and intact with no rash, purpura, petechiae, vesicles or pustules. Backs/flank: No CVA tenderness, no midline spinal tenderness, no deformity. Psych: Normal mood and affect. No SI, HI or acute psychosis. Const Vital Signs: 04/21/22 17:50 04/21/22 18:00 Temperature 98.9 F 98.9 F Temperature Source Temporal Temporal Pulse Rate 85 85 Respiratory Rate 14 14 Blood Pressure 125/77 H 125/77 H Blood Pressure Mean 93 93 Pulse Ox 97 97 Oxygen Delivery Method Room Air Room Air Positive well nourished and well developed General Appearance ED: well developed MDM MDM Lab Data Labs: Laboratory Results - last 24 hr 04/21/22 18:35 WBC 7.8 RBC 4.71 Hgb 14.3 Hct 43.5 MCV 92.4 MCH 30.4 MCHC 32.9 RDW Std Deviation 45.4 H RDW Coeff of Nguyen 13.4 Plt Count 287 MPV 9.6 Immature Gran % (Auto) 0.100 Neut % (Auto) 73.5 H Lymph % (Auto) 17.5 L [place] % (Auto) 6.5 Eos % (Auto) 2.0 Baso % (Auto) 0.4 Absolute Neuts (auto) 5.7 Absolute Lymphs (auto) 1.37 Nucleated RBC % 0 Treatment and Re-Evaluation Narrative: Patient appears well, patient appears nontoxic, vital signs are stable. Patient presents to the emergency department with ongoing pain to the wound to the left lower extremity, concerning for furthering infection. Patient's wound does appear to show surrounding cellulitis, patient is on Augmentin which she has taken 4 days with minimal improvement. Patient will receive some basic laboratory values as well as a lactic acid. She will be given IV clindamycin. Patient appears well, patient appears nontoxic, vital signs are stable. Patient's CBC was unremarkable, lactic acid was unremarkable, not believe the patient is septic. Patient is currently on the Augmentin, she did receive IV dose of clindamycin here. She be placed on Bactrim at home and instructed to keep the area clean and dry. She will be referred to the wound center and try to see them as soon as possible. She is instructed to return for worsening redness, fever chills nausea vomiting. Patient did receive a 2 view x-ray of the tibia-fibula, these were interpreted by the ER physician as negative. Patient is happy with the plan of care and is stable for discharge. Discharge Plan Triage Chief Complaint: Wound ED Midlevel Provider: Jeff Godfrey ED Provider: Zaki Saleem Dx/Rx/DC Orders Instructions: Cellulitis, ED Laceration: Infected Repair, ED Wound Check (Infection) Prescriptions: New sulfamethoxazole-trimethoprim [Bactrim DS] 800-160 mg tablet 1 tab PO BID Qty: 20 0RF No Action sertraline 100 mg Tablet 100 mg PO DAILY ascorbic acid (vitamin C) [Vitamin C] 500 mg Tablet 500 mg PO DAILY elderberry fruit 200 mg Capsule 200 mg PO DAILY cholecalciferol (vitamin D3) [Vitamin D3] 50 mcg (2,000 unit) Capsule 50 mcg PO DAILY tolterodine [Detrol LA] 2 mg Capsule,Extended Release 24hr 2 mg PO DAILY amoxicillin-pot clavulanate [Augmentin] 500-125 mg Tablet 1 tab PO TID Primary Care Provider: Evaristo Bedolla Referrals: Evaristo Bedolla MD [Primary Care Provider] - Center,Wound [Non-Staff] - (Please follow-up with soon as possible) Activity Restrictions/Additional Instructions: Please continue your Augmentin, you may add Bactrim. You need to follow-up with the wound care center as soon as possible. Take antibiotics until finished Disposition Disposition: Home, Self Care
--- NOTE | 2022-04-21 18:45 | RAD_ITS ---
STUDY: X-RAY - LEFT TIBIA AND FIBULA REASON FOR EXAM: Female, 72 years old. wound TECHNIQUE: 2 view(s) of the tibia and fibula were obtained. COMPARISON: None. FINDINGS: Normal visualized tibia. Normal visualized fibula. The soft tissue structures are unremarkable. RAD/Tibia & Fibula 2 Views IMPRESSION: Normal x-ray examination of the tibia and fibula. Electronically Signed: Reinier Jo MD at 20:36 EDT ,
[2022-04-21 18:49] LABS: Absolute Lymphocyte Count 1.37 X10^3/uL (0.83-4.51); Absolute Neutrophil Count 5.7 X10^3/uL (2.0-7.7); Basophil# 0.03 X10^3/uL; Basophil% 0.4 % (0-1); Eosinophil# 0.16 X10^3/uL; Hematocrit 43.5 % (37-47); Hemoglobin 14.3 g/dL (12.0-15.0); Lymphocyte # 1.37 X10^3/ul (0.83-4.51); Lymphocyte % 17.5 % (19-41); Mean Corp Hgb Conc 32.9 g/dL (32-36); Mean Corpuscular Hgb 30.4 pg (27.0-32.0); Mean Corpuscular Volume 92.4 fL (81-99); Mean Platelet Vol. 9.6 fl (6.2-12.0); Monocyte# 0.51 X10^3/uL; Monocyte% 6.5 % (0-10); NRBC Flagged by Analyzer 0 % (0-5); Neutrophil # 5.73 X10^3/uL (2.7-7.7); Neutrophil % 73.5 % (47-70); Platelet Count 287 K/mm3 (150-450); RBC Distribution Width CV 13.4 % (11.6-14.6); RBC Distribution Width SD 45.4 fl (35.1-43.9); Red Blood Count 4.71 M/mm3 (4.2-5.4); White Blood Count 7.8 K/mm3 (4.4-11.0)
[2022-04-21 19:02] LABS: Anion Gap 3 (5-15); BUN 18 mg/dL (7-18); BUN/Creat Ratio 30.1 RATIO (10-20); Calcium,Total 9.4 mg/dL (8.5-10.1); Chloride 107 mmol/L (98-107); EST Glomerular Filtration Rate 104 mL/min (>60); Est Glom Filt Rate - Afr Amer 126 mL/min (>60); Estimated Creatinine Clearance 39.63 ml/min; Glucose 90 mg/dL (74-106); Potassium 4.4 mmol/L (3.5-5.1); Sodium Level 139 mmol/L (136-145)
[2022-04-21 19:18] LABS: Lactic Acid 0.4 mmol/L (0.4-1.9)
[2022-04-21] MEDS: Clindamycin 900 MG/50 ML BAG 75 MG IV (19:34)
[2022-04-21 20:43] VITALS: RESP 16
== END 2022-04-21 20:44 | disposition home or self-care (01) ==
PROVIDERS: Nurse Practitioner; Emergency Provider Emergency Medicine; PCP Family Medicine; Visit Provider Emergency Medicine
DX: F41.9 Anxiety disorder, unspecified (principal); S81.812D Laceration without foreign body, left lower leg, subsequent encounter; X58.XXXD Exposure to other specified factors, subsequent encounter; L03.116 Cellulitis of left lower limb; Z79.899 Other long term (current) drug therapy
CPT/HCPCS: 73590; 80048; 83605; 85025; 96365; 99283; J7040

== ENCOUNTER 2022-05-10 10:30 | Outpatient (RCR) | payer MEDICARE, SELFPAY ==
[2022-04-26 10:12] VITALS: BP 149/57; PULSE 86; TEMP 36.6
--- NOTE | 2022-04-26 10:43 | PCM.WC.HP ---
History of Present Illness Date of Service: 04/26/22 Chief Complaint: Follow-up on a left lower leg partial avulsion laceration from a door hinge back on April 09 History of Wound: 72-year-old white female carrying groceries cut her leg did go to the emergency room right away and received sutures for the partial avulsion laceration. Then she returned to the emergency room later when she started develop a hematoma underneath the sutures. The emergency room doctor then drained the clot. And the last time she went to the emergency room is because she thought it looked infected and that was on April 22 and they referred her to the wound center. Patient received clindamycin IV in the emergency department and is currently on Bactrim and Augmentin orally at this time [facility] Medical History Anemia Anxiety Arthritis Heartburn History of depression History of edema History of IBS Migraine headache Non-smoker Restless legs Shortness of breath on exertion Wears glasses Home Medications ascorbic acid (vitamin C) 500 mg tablet (Vitamin C) 500 mg PO DAILY supplement 02/25/21 [History Last Taken Unknown] cholecalciferol (vitamin D3) 50 mcg (2,000 unit) capsule (Vitamin D3) 50 mcg PO DAILY 02/25/21 [History Last Taken Unknown] elderberry fruit 200 mg capsule 200 mg PO DAILY supplement 02/25/21 [History Last Taken Unknown] sertraline 100 mg tablet 100 mg PO DAILY anxiety 02/25/21 [History Last Taken Unknown] amoxicillin 500 mg-potassium clavulanate 125 mg tablet (Augmentin) 1 tab PO TID 04/21/22 [History Last Taken Unknown] sulfamethoxazole 800 mg-trimethoprim 160 mg tablet (Bactrim DS) 1 tab PO BID #20 tabs 04/21/22 [Rx Last Taken Unknown] tolterodine 2 mg capsule,extended release 24 hr (Detrol LA) 2 mg PO DAILY 04/21/22 [History Last Taken Unknown] Allergy/AdvReac Type Severity Reaction Status Date / Time No Known Allergies Allergy Verified 04/21/22 17:50 Surgical History History of hysterectomy Social History Smoking Status: Never smoker ROS Integumentary Integumentary: Reports wounds and other Details: Sutured laceration to her left lower keenan area Vital Signs Vital Signs Vital Signs: 04/26/22 10:12 Temperature 97.9 F Temperature Source Temporal Pulse Rate 86 Blood Pressure 149/57 H Blood Pressure Mean 87 Blood Pressure Source Monitor Blood Pressure Position Semi-Fowlers Blood Pressure Location Right Arm Physical Exam Const oriented x3 General Appearance: cooperative Exam Limitations: no limitations HEENT normocephalic Eyes PERRL Neck full ROM Resp normal respiratory effort Effort and Inspection: able to speak in complete sentences Auscultation: clear to auscultation bilaterally Cardio regular rate and regular rhythm Palpation: normal PMI Rate: regular rate Rhythm: regular rhythm GI Auscultation: normoactive bowel sounds Palpation: soft and no hepatosplenomegaly external exam normal Extremity normal to inspection General Extremity: normal exam except as noted Skin no rashes or lesions noted Skin Narrative: Sutured partial avulsion laceration to the left lower leg. The flap did not take and is more black and loose. Sutures around the edge approximately 14 Neuro oriented x3 Psych Appearance: grossly normal Speech: normal speech Thought Content: normal thought content Judgement: judgement good Debridement Note Debridement Note Wound debrided: Left lower keenan traumatic wound with suture Laterality: Left Type of Debridement: Excisional debridement Anesthesia Used: 5% Lidocaine Gel Depth: in the subcutaneous layer Percentage of wound debrided: 100 Instrument Used: 5mm curette, #15 blade, Forceps and - (Scissors) Tissue Removed: Devitalized tissue and sutures removed 14 Severity: Fat Layer Exposed Amount of bleeding with debridement: Mild Bleeding Controlled with: Compression and gauze Patient tolerated procedure: Patient tolerated procedure well Post-Debridement Measurements and Additional Note: Post-Debridement Measurements/Treatment - Nurse 1 - General Ulcer Assessment Start: 04/26/22 10:12 Freq: Status: Active Protocol: DIMITRI Activity Type Activity Date Activity User E-sign Co-sign Detail Recorded Client Recorded Date Recorded By Document 04/26/22 10:12 VICKY [id number] 04/26/22 10:19 VICKY 04/26/22 10:12 - Today's Visit Information Type of service Initial Visit Arrival Mode Ambulatory Patient Identification Verified (Name & Yes ) Vital Signs Temperature (97.8 F-99.1 F) 97.9 F Temperature Source Temporal Pulse Rate (60-100) 86 Pulse Location Monitor Blood Pressure (90/60-120/80) 149/57 H Blood Pressure Mean 87 Source Monitor Position Semi-Fowlers Blood Pressure Location Right Arm History Since Last Visit- (Skip if this is Patient's initial visit) Have you changed medications since your No last visit? Any new allergies or adverse reactions No Had a fall/change in ADL's that may No increase risk of falls Signs or symptoms of abuse and/or No neglect since last visit Have you been in the hospital since your No last visit? Has dressing in place as prescribed No Has compression in place as prescribed N/A Has offloadiing in place as prescribed N/A Experienced any changes in pain level or No management Left Footwear Regular Shoe Right Footwear Regular Shoe Pain Scale: 0-10 Numeric Is Patient Pain Free? Yes WC - Nurse 1 - General Ulcer Measurement Start: 04/26/22 10:12 Freq: Status: Active Protocol: Activity Type Activity Date Activity User E-sign Co-sign Detail Recorded Client Recorded Date Recorded By Document 04/26/22 10:12 [id number] 04/26/22 10:19 KR 04/26/22 10:12 Wound Center Nurse 1 #1 Left [place] -Current Size (cm) - Length 5 -Current Size (cm) - Width 5.6 -Current Size (cm) - Depth 0.1 -Total Square Cm 28.0 -Wound Margin Distinct, Outline Attached -Necrosis Amt Large (67-100%) -Necrotic Tissue Type Eschar -Texture (Sofie-wound Skin Appearance) Assessed, Scarring -Moisture (Sofie-wound Skin Appearance) No Abnormality, Assessed -Color (Sofie-wound Skin Appearance) No Abnormality, Assessed -Temperature (Sofie-wound Skin No Abnormality Appearance) (Pt Warm) -Tenderness on Palpation (Sofie-wound No Skin Appearance) -Ulcer Cleansing Rinsed/ Irrigated with Saline -Foul Odor after Cleansing No -Anesthetic Used 5% Lidocaine Gel WC - Nurse 2 - General Ulcer CM Notes Start: 04/26/22 10:12 Freq: Status: Active Protocol: Activity Type Activity Date Activity User E-sign Co-sign Detail Recorded Client Recorded Date Recorded By Document 04/26/22 10:28 [id number] 04/26/22 10:39 MW 04/26/22 10:28 Wound Center Nurse 2 -Time 10:28 -Correct Patient Yes -Correct Side, Site, Position Yes -Correct Procedure Yes -Procedure Performed Yes -Type of Procedure Debridement -Clinical Debridement Subcutaneous -Tissue Removed Subcutaneous -Post Debridement (cm) - Length 5.4 -Post Debridement (cm) - Width 4.0 -Post Debridement (cm) - Depth 0.1 -Total Square (Post) (cm) 21.60 -Area of Debridement (cm) - Length 5.4 -Area of Debridement (cm) - Width 4.0 -Total Square (Area) (cm) 21.60 -Tunneling No -Undermining/Tunneling No -Circular Undermining No -Wound/Ulcer Outcome Not Healed -Ulcer Cleansing Rinsed/ Irrigated with Saline -Foul Odor after Cleansing No -Bioengineered Tissue No -Bleeding Controlled with Pressure -Treatment Response Procedure Tolerated Well -Offloading No -Debridement - Subq, 1st 20sq cm Yes -Debridement, SubQ, ea addt'l 20sq cm 1 or part thereof Pain Scale: 0-10 Numeric Is Patient Pain Free? Yes Assessment/Plan Assessment/Plan (1) Traumatic open wound of lower leg with infection: CODE(S): S81.809A - Unspecified open wound, unspecified lower leg, initial encounter; L08.9 - Local infection of the skin and subcutaneous tissue, unspecified PLAN: Wash the lower leg with antibacterial soap and water apply Fibracol to wound base moistened cover with Adaptic and then dry dressing over top every day follow-up in 1 week Wear a Tubigrip double layer to the left leg (2) Nonhealing surgical wound: CODE(S): T81.89XA - Other complications of procedures, not elsewhere classified, initial encounter
[2022-05-03 10:51] VITALS: BP 134/70; PULSE 87; TEMP 36.3
--- NOTE | 2022-05-03 11:55 | PCM.WC.PN ---
History of Present Illness Date of Service: 05/03/22 Chief Complaint: Follow-up on a left lower leg partial avulsion laceration from a door hinge back on April 09 History of Wound: 72-year-old white female carrying groceries cut her leg did go to the emergency room right away and received sutures for the partial avulsion laceration. Then she returned to the emergency room later when she started develop a hematoma underneath the sutures. The emergency room doctor then drained the clot. And the last time she went to the emergency room is because she thought it looked infected and that was on April 22 and they referred her to the wound center. Patient received clindamycin IV in the emergency department and is currently on Bactrim and Augmentin orally at this time Progress of Wound: Wound is healing very well with using Fibracol. No sign of infection surrounding tissue Subjective Subjective Patient is very pleased with healing so far Objective Data Objective Data We will continue using the Fibracol debrided a lot of the scabbing and devitalized tissue that surrounding the wounds edge to keep it from healing properly. No sign of infection noted Vital Signs: Vital Signs Temp Pulse BP 97.3 F L 87 134/70 H 05/03/22 10:51 05/03/22 10:51 05/03/22 10:51 Physical Exam Const oriented x3 General Appearance: cooperative Exam Limitations: no limitations HEENT normocephalic Eyes PERRL Neck full ROM Resp normal respiratory effort Effort and Inspection: able to speak in complete sentences Auscultation: clear to auscultation bilaterally Cardio regular rate and regular rhythm Palpation: normal PMI Rate: regular rate Rhythm: regular rhythm GI Auscultation: normoactive bowel sounds Palpation: soft and no hepatosplenomegaly external exam normal Extremity normal to inspection General Extremity: normal exam except as noted Skin no rashes or lesions noted Skin Narrative: Sutured partial avulsion laceration to the left lower leg. The flap did not take and is more black and loose. Sutures around the edge approximately 14 Neuro oriented x3 Psych Appearance: grossly normal Speech: normal speech Thought Content: normal thought content Judgement: judgement good Debridement Note Debridement Note Wound debrided: Left lower leg keenan area Laterality: Left Type of Debridement: Excisional debridement Anesthesia Used: 5% Lidocaine Gel Depth: in the subcutaneous layer Percentage of wound debrided: 100 Instrument Used: 5mm curette and #15 blade Tissue Removed: Devitalized tissue and fibrin Severity: Fat Layer Exposed Amount of bleeding with debridement: Mild Bleeding Controlled with: Compression and gauze Patient tolerated procedure: Patient tolerated procedure well Post-Debridement Measurements and Additional Note: Post-Debridement Measurements/Treatment WC - Nurse 1 - General Ulcer Assessment Start: 04/26/22 10:12 Freq: Status: Active Protocol: DIMITRI Activity Type Activity Date Activity User E-sign Co-sign Detail Recorded Client Recorded Date Recorded By Document 04/26/22 10:12 KR [id number] 04/26/22 10:19 KR Document 05/03/22 10:51 KR [id number] 05/03/22 10:52 KR 04/26/22 05/03/22 10:12 10:51 WC - Today's Visit Information Type of service Initial Visit Follow-up Visit (Physician/STEEL INSPECTOR ) Arrival Mode Ambulatory Ambulatory Patient Identification Verified (Name & Yes Yes ) Vital Signs Temperature (97.8 F-99.1 F) 97.9 F 97.3 F L Temperature Source Temporal Temporal Pulse Rate (60-100) 86 87 Pulse Location Monitor Monitor Blood Pressure (90/60-120/80) 149/57 H 134/70 H Blood Pressure Mean (mm Hg) 87 91 Source Monitor Monitor Position Semi-Fowlers Semi-Fowlers Blood Pressure Location Right Arm Right Arm History Since Last Visit- (Skip if this is Patient's initial visit) Have you changed medications since your No No last visit? Any new allergies or adverse reactions No No Had a fall/change in ADL's that may No No increase risk of falls Signs or symptoms of abuse and/or No No neglect since last visit Have you been in the hospital since your No No last visit? Has dressing in place as prescribed No Yes Has compression in place as prescribed N/A N/A Has offloadiing in place as prescribed N/A N/A Experienced any changes in pain level or No No management Left Footwear Regular Shoe Regular Shoe Right Footwear Regular Shoe Regular Shoe Pain Scale: 0-10 Numeric Is Patient Pain Free? Yes Yes FLAKITO Chan Nurse 1 - General Ulcer Measurement Start: 04/26/22 10:12 Freq: Status: Active Protocol: Activity Type Activity Date Activity User E-sign Co-sign Detail Recorded Client Recorded Date Recorded By Document 04/26/22 10:12 KR [id number] 04/26/22 10:19 KR Document 05/03/22 10:51 KR [id number] 05/03/22 10:52 KR 04/26/22 05/03/22 10:12 10:51 Wound Center Nurse 1 #1 Left Keenan -Current Size (cm) - Length 5 6.1 -Current Size (cm) - Width 5.6 5 -Current Size (cm) - Depth 0.1 0.2 -Total Square Cm 28.0 30.5 -Exudate Amt Large -Exudate Type Serosanguineous -Wound Margin Distinct, Distinct, Outline Outline Attached Attached -Granulation Amt Medium (34-66%) -Granulation Quality Red -Necrosis Amt Large (67-100%) Medium (34-66%) -Necrotic Tissue Type Eschar Adherent Slough -Texture (Sofie-wound Skin Appearance) Assessed, Assessed, Scarring Scarring -Moisture (Sofie-wound Skin Appearance) No Abnormality, No Abnormality, Assessed Assessed -Color (Sofie-wound Skin Appearance) No Abnormality, No Abnormality, Assessed Assessed -Temperature (Sofie-wound Skin No Abnormality No Abnormality Appearance) (Pt Warm) (Pt Warm) -Tenderness on Palpation (Sofie-wound No Skin Appearance) -Ulcer Cleansing Rinsed/ Rinsed/ Irrigated with Irrigated with Saline Saline -Foul Odor after Cleansing No No -Anesthetic Used 5% Lidocaine 4% Lidocaine Gel Solution,5% Lidocaine Gel WC - Nurse 2 - General Ulcer CM Notes Start: 04/26/22 10:12 Freq: Status: Active Protocol: Activity Type Activity Date Activity User E-sign Co-sign Detail Recorded Client Recorded Date Recorded By Document 04/26/22 10:28 MW [id number] 04/26/22 10:39 MW Document 05/03/22 10:58 MW [id number] 05/03/22 11:02 MW 04/26/22 05/03/22 10:28 10:58 Wound Center Nurse 2 #1 Left Keenan -Time 10:28 10:58 -Correct Patient Yes Yes -Correct Side, Site, Position Yes Yes -Correct Procedure Yes Yes -Procedure Performed Yes Yes -Type of Procedure Debridement Debridement -Clinical Debridement Subcutaneous Subcutaneous -Tissue Removed Subcutaneous Subcutaneous -Post Debridement (cm) - Length 5.4 6.3 -Post Debridement (cm) - Width 4.0 4.0 -Post Debridement (cm) - Depth 0.1 0.2 -Total Square (Post) (cm) 21.60 25.20 -Area of Debridement (cm) - Length 5.4 6.3 -Area of Debridement (cm) - Width 4.0 4.0 -Total Square (Area) (cm) 21.60 25.20 -Tunneling No No -Undermining/Tunneling No No -Circular Undermining No No -Wound/Ulcer Outcome Not Healed Not Healed -Ulcer Cleansing Rinsed/ Rinsed/ Irrigated with Irrigated with Saline Saline -Foul Odor after Cleansing No No -Bioengineered Tissue No No -Bleeding Controlled with Pressure Pressure -Treatment Response Procedure Procedure Tolerated Well Tolerated Well -Offloading No No -Debridement - Subq, 1st 20sq cm Yes Yes -Debridement, SubQ, ea addt'l 20sq cm 1 1 or part thereof Pain Scale: 0-10 Numeric Is Patient Pain Free? Yes Yes - Nurse 3 - General Ulcer D/C NN Start: 04/26/22 10:12 Freq: Status: Active Protocol: Activity Type Activity Date Activity User E-sign Co-sign Detail Recorded Client Recorded Date Recorded By Document 05/03/22 11:11 [facility] [id number] 05/03/22 11:12 [facility] 05/03/22 11:11 Wound Care Nurse 3 #1 Left Keenan -Ulcer Cleansing Rinsed/ Irrigated with Saline -Foul Odor after Cleansing No -Primary Dressing Applied Fibracol Plus 4x4,NonAdherent Contact Layer -Other Dressing drsg per kr international coordinator -Primary Dressing Covered/Secured with Dry Gauze & Roll Gauze, Secured with Tape -Fibracol Plus 4x4 2 Left -Other pt will apply tubi at home Treatment Response Procedure Tolerated Well Pain Scale: 0-10 Numeric Is Patient Pain Free? Yes - Visit Discharge Discharge Condition Stable Ambulatory Status Ambulatory Transportation Private Auto Assessment/Plan Assessment/Plan (1) Traumatic open wound of lower leg with infection: CODE(S): S81.809A - Unspecified open wound, unspecified lower leg, initial encounter; L08.9 - Local infection of the skin and subcutaneous tissue, unspecified PLAN: Wash the lower leg with antibacterial soap and water apply Fibracol to wound base moistened cover with Adaptic and then dry dressing over top every day follow-up in 1 week Wear a Tubigrip double layer to the left leg (2) Nonhealing surgical wound: CODE(S): T81.89XA - Other complications of procedures, not elsewhere classified, initial encounter
[2022-05-10 10:35] VITALS: BP 142/73; PULSE 88; RESP 16; TEMP 35.3
--- NOTE | 2022-05-10 12:38 | PN.PCM_ITS ---
History of Present Illness Date of Service: 05/10/22 Chief Complaint: Follow-up on a left lower leg partial avulsion laceration from a door hinge back on April 09 History of Wound: 72-year-old white female carrying groceries cut her leg did go to the emergency room right away and received sutures for the partial avulsion laceration. Then she returned to the emergency room later when she started develop a hematoma underneath the sutures. The emergency room doctor then drained the clot. And the last time she went to the emergency room is because she thought it looked infected and that was on April 22 and they referred her to the wound center. Patient received clindamycin IV in the emergency department and is currently on Bactrim and Augmentin orally at this time Progress of Wound: Wound is healing very well with using Fibracol. No sign of infection surrounding tissue is well approximated. He is developing skin buds in the center still quite large in surface area we will continue using the Fibracol moistened with Adaptic over top and a double layer Tubigrip to hold in place Subjective Subjective Patient feels it looks better than it did Objective Data Objective Data We cultured for bacteria and anaerobes. Wound is healing but slowly. She was positive over a month ago for bacteria we will recheck to make sure its not slowing down process Responding well to the wound care we will follow her up in another week Vital Signs: Vital Signs Temp Pulse Resp BP O2 Del Method 95.5 F L 88 16 142/73 H Room Air 05/10/22 10:35 05/10/22 10:35 05/10/22 10:35 05/10/22 10:35 05/10/22 10:35 Oxygen Delivery Method Room Air Lab / Micro Data Attestation: I reviewed the patient's lab results. Debridement Note Debridement Note Wound debrided: Left lower leg wound trauma Laterality: Left Type of Debridement: Excisional debridement Anesthesia Used: 5% Lidocaine Gel Depth: in the subcutaneous layer Percentage of wound debrided: 100 Instrument Used: 7mm curette Tissue Removed: Fibrin and devitalized tissue Severity: Fat Layer Exposed Amount of bleeding with debridement: Mild Bleeding Controlled with: Compression and gauze Patient tolerated procedure: Patient tolerated procedure well Post-Debridement Measurements and Additional Note: Post-Debridement Measurements/Treatment FLAKITO - Nurse 1 - General Ulcer Assessment Start: 04/26/22 10:12 Freq: Status: Active Protocol: DIMITRI Activity Type Activity Date Activity User E-sign Co-sign Detail Recorded Client Recorded Date Recorded By Document 04/26/22 10:12 VICKY [id number] 04/26/22 10:19 KR Document 05/03/22 10:51 KR [id number] 05/03/22 10:52 KR Document 05/10/22 10:35 [facility] [id number] 05/10/22 10:43 [facility] 04/26/22 05/03/22 05/10/22 10:12 10:51 10:35 - Today's Visit Information Type of service Initial Visit Follow-up Visit Follow-up Visit (Physician/ACCOUNTING/FINANCE TUTOR (Physician/ACCOUNTING/FINANCE TUTOR ) ) Arrival Mode Ambulatory Ambulatory Ambulatory Transfer Assistance None Patient Identification Verified (Name & Yes Yes Yes ) Patient Requires Transmission-Based No Precautions Vital Signs Temperature (97.8 F-99.1 F) 97.9 F 97.3 F L 95.5 F L Temperature Source Temporal Temporal Temporal Pulse Rate (60-100) 86 87 88 Pulse Location Monitor Monitor Monitor Respiratory Rate (12-18) 16 Respiratory rate source Observation Oxygen Delivery Method Room Air Blood Pressure (90/60-120/80) 149/57 H 134/70 H 142/73 H Blood Pressure Mean (mm Hg) 87 91 96 Source Monitor Monitor Monitor Position Semi-Fowlers Semi-Fowlers Sitting Blood Pressure Location Right Arm Right Arm Left Arm History Since Last Visit- (Skip if this is Patient's initial visit) Have you changed medications since your No No No last visit? Any new allergies or adverse reactions No No No Had a fall/change in ADL's that may No No No increase risk of falls Signs or symptoms of abuse and/or No No No neglect since last visit Have you been in the hospital since your No No No last visit? Has dressing in place as prescribed No Yes Yes Has compression in place as prescribed N/A N/A Yes Has offloadiing in place as prescribed N/A N/A N/A Experienced any changes in pain level or No No No management Left Footwear Regular Shoe Regular Shoe Regular Shoe Right Footwear Regular Shoe Regular Shoe Regular Shoe Pain Scale: 0-10 Numeric Is Patient Pain Free? Yes Yes Yes - Nurse 1 - General Ulcer Measurement Start: 04/26/22 10:12 Freq: Status: Active Protocol: Activity Type Activity Date Activity User E-sign Co-sign Detail Recorded Client Recorded Date Recorded By Document 04/26/22 10:12 KR [id number] 04/26/22 10:19 KR Document 05/03/22 10:51 KR [id number] 05/03/22 10:52 KR Document 05/10/22 10:35 [facility] [id number] 05/10/22 10:43 F 04/26/22 05/03/22 05/10/22 10:12 10:51 10:35 Wound Center Nurse 1 #1 Left Box -Combined with other wound No -Current Size (cm) - Length 5 6.1 5.5 -Current Size (cm) - Width 5.6 5 5.8 -Current Size (cm) - Depth 0.1 0.2 0.3 -Total Square Cm 28.0 30.5 31.90 -Date of Last Picture (Recall this 05/10/22 field) -Photo Taken Yes -Epithelialization None Present -Tunneling No -Undermining/Tunneling No -Circular Undermining No -Exudate Amt Large Large -Exudate Type Serosanguineous Serosanguineous -Wound Margin Distinct, Distinct, Distinct, Outline Outline Outline Attached Attached Attached -Granulation Amt Medium (34-66%) Medium (34-66%) -Granulation Quality Red Red -Slough/Fibrin Yes -Necrosis Amt Large (67-100%) Medium (34-66%) Medium (34-66%) -Necrotic Tissue Type Eschar Adherent Slough Adherent Slough -Texture (Sofie-wound Skin Appearance) Assessed, Assessed, Assessed, Scarring Scarring Scarring -Moisture (Sofie-wound Skin Appearance) No Abnormality, No Abnormality, Assessed Assessed Assessed -Color (Sofie-wound Skin Appearance) No Abnormality, No Abnormality, Assessed, Assessed Assessed Erythema -Temperature (Sofie-wound Skin No Abnormality No Abnormality No Abnormality Appearance) (Pt Warm) (Pt Warm) (Pt Warm) -Tenderness on Palpation (Sofie-wound No Yes Skin Appearance) -Ulcer Cleansing Rinsed/ Rinsed/ Rinsed/ Irrigated with Irrigated with Irrigated with Saline Saline Saline -Foul Odor after Cleansing No No No -Anesthetic Used 5% Lidocaine 4% Lidocaine 4% Lidocaine Gel Solution,5% Solution Lidocaine Gel Lower Limb Edema Present Yes Left Calf (cm) 38 Left Ankle (cm) 24 WC - Nurse 2 - General Ulcer CM Notes Start: 04/26/22 10:12 Freq: Status: Active Protocol: Activity Type Activity Date Activity User E-sign Co-sign Detail Recorded Client Recorded Date Recorded By Document 04/26/22 10:28 MW [id number] 04/26/22 10:39 MW Document 05/03/22 10:58 MW [id number] 05/03/22 11:02 MW Document 05/10/22 10:48 MW [id number] 05/10/22 10:54 MW 04/26/22 05/03/22 05/10/22 10:28 10:58 10:48 Wound Center Nurse 2 #1 Left Box -Time 10:28 10:58 10:49 -Correct Patient Yes Yes Yes -Correct Side, Site, Position Yes Yes Yes -Correct Procedure Yes Yes Yes -Procedure Performed Yes Yes Yes -Type of Procedure Debridement Debridement Debridement -Clinical Debridement Subcutaneous Subcutaneous Subcutaneous -Tissue Removed Subcutaneous Subcutaneous Subcutaneous -Post Debridement (cm) - Length 5.4 6.3 5.4 -Post Debridement (cm) - Width 4.0 4.0 6.0 -Post Debridement (cm) - Depth 0.1 0.2 0.2 -Total Square (Post) (cm) 21.60 25.20 32.40 -Area of Debridement (cm) - Length 5.4 6.3 5.4 -Area of Debridement (cm) - Width 4.0 4.0 6.0 -Total Square (Area) (cm) 21.60 25.20 32.40 -Tunneling No No No -Undermining/Tunneling No No No -Circular Undermining No No No -Wound/Ulcer Outcome Not Healed Not Healed Not Healed -Ulcer Cleansing Rinsed/ Rinsed/ Rinsed/ Irrigated with Irrigated with Irrigated with Saline Saline Saline -Foul Odor after Cleansing No No No -Bioengineered Tissue No No No -Bleeding Controlled with Pressure Pressure Pressure -Treatment Response Procedure Procedure Procedure Tolerated Well Tolerated Well Tolerated Well -Offloading No No No -Debridement - Subq, 1st 20sq cm Yes Yes Yes -Debridement, SubQ, ea addt'l 20sq cm 1 1 1 or part thereof Pain Scale: 0-10 Numeric Is Patient Pain Free? Yes Yes Yes - Nurse 3 - General Ulcer D/C NN Start: 04/26/22 10:12 Freq: Status: Active Protocol: Activity Type Activity Date Activity User E-sign Co-sign Detail Recorded Client Recorded Date Recorded By Document 05/03/22 11:11 [facility] [id number] 05/03/22 11:12 [facility] 05/03/22 11:11 Wound Care Nurse 3 #1 Left Box -Ulcer Cleansing Rinsed/ Irrigated with Saline -Foul Odor after Cleansing No -Primary Dressing Applied Fibracol Plus 4x4,NonAdherent Contact Layer -Other Dressing drsg per kr embroidery worker -Primary Dressing Covered/Secured with Dry Gauze & Roll Gauze, Secured with Tape -Fibracol Plus 4x4 2 Left -Other pt will apply tubi at home Treatment Response Procedure Tolerated Well Pain Scale: 0-10 Numeric Is Patient Pain Free? Yes - Visit Discharge Discharge Condition Stable Ambulatory Status Ambulatory Transportation Private Auto Assessment/Plan Assessment/Plan (1) Traumatic open wound of lower leg with infection: CODE(S): S81.809A - Unspecified open wound, unspecified lower leg, initial encounter; L08.9 - Local infection of the skin and subcutaneous tissue, unspecified PLAN: Wash the lower leg with antibacterial soap and water apply Fibracol to wound base moistened cover with Adaptic and then dry dressing over top every day follow-up in 1 week Wear a Tubigrip double layer to the left leg Obtained cultures will call with results (2) Nonhealing surgical wound: CODE(S): T81.89XA - Other complications of procedures, not elsewhere classified, initial encounter
== END 2022-05-10 23:59 | disposition home or self-care (01) ==
LOC: WC 10:30
PROVIDERS: PCP Family Medicine; Visit Provider Nurse Practitioner
DX: S81.812D Laceration without foreign body, left lower leg, subsequent encounter (principal); L08.9 Local infection of the skin and subcutaneous tissue, unspecified; W22.09XD Striking against other stationary object, subsequent encounter; F41.9 Anxiety disorder, unspecified; M19.90 Unspecified osteoarthritis, unspecified site; Z79.899 Other long term (current) drug therapy
CPT/HCPCS: 11042; 11045; 87070; 87075; 87077; 87186; 87205; 99213; G0463

== ENCOUNTER 2022-05-31 10:30 | Outpatient (RCR) | payer MEDICARE, SELFPAY ==
[2022-05-11 00:47] VITALS: BP 142/73; PULSE 88; RESP 16; TEMP 35.3
[2022-05-17 10:24] VITALS: BP 141/94; PULSE 89; TEMP 36.4
--- NOTE | 2022-05-17 12:19 | PCM.WC.PN ---
History of Present Illness Date of Service: 05/17/22 Chief Complaint: Follow-up on a left lower leg partial avulsion laceration from a door hinge back on April 09 History of Wound: 72-year-old white female carrying groceries cut her leg did go to the emergency room right away and received sutures for the partial avulsion laceration. Then she returned to the emergency room later when she started develop a hematoma underneath the sutures. The emergency room doctor then drained the clot. And the last time she went to the emergency room is because she thought it looked infected and that was on April 22 and they referred her to the wound center. Patient received clindamycin IV in the emergency department and is currently on Bactrim and Augmentin orally at this time Progress of Wound: The rather large avulsion laceration to her left lateral leg is healing well she is developing islands in the center. And she debrides easily of devitalized tissue around the edge of the wound. She is currently on antibiotic therapy for the wound when she grew bacteria but no anaerobes. Skin did hypergranulated and we did have to use nitro sticks to back it off. Surrounding tissue is less red and erythematous and she says less painful to do the dressing changes. Subjective Subjective Patient is pleased with outcomes Objective Data Objective Data As stated above healthy wound on antibiotics healing well measures are smaller we will continue using the Aquacel extra and Adaptic at this time Vital Signs: Vital Signs Temp Pulse Resp BP 97.5 F L 89 16 141/94 H 05/17/22 10:24 05/17/22 10:24 05/11/22 00:47 05/17/22 10:24 Lab / Micro Data Attestation: I reviewed the patient's lab results. Physical Exam Const oriented x3 General Appearance: cooperative Exam Limitations: no limitations HEENT normocephalic Eyes PERRL Neck full ROM Resp normal respiratory effort Effort and Inspection: able to speak in complete sentences Auscultation: clear to auscultation bilaterally Cardio regular rate and regular rhythm Palpation: normal PMI Rate: regular rate Rhythm: regular rhythm GI Auscultation: normoactive bowel sounds Palpation: soft and no hepatosplenomegaly external exam normal Extremity normal to inspection General Extremity: normal exam except as noted Skin no rashes or lesions noted Skin Narrative: Sutured partial avulsion laceration to the left lower leg. The flap did not take and is more black and loose. Sutures around the edge approximately 14 Neuro oriented x3 Psych Appearance: grossly normal Speech: normal speech Thought Content: normal thought content Judgement: judgement good Debridement Note Debridement Note Wound debrided: Left lateral lower leg Laterality: Left Type of Debridement: Excisional debridement Anesthesia Used: 5% Lidocaine Gel Depth: Down to and including healthy tissue and in the subcutaneous layer Percentage of wound debrided: 100 Instrument Used: 7mm curette Tissue Removed: Fibrin devitalized tissue Severity: Fat Layer Exposed Amount of bleeding with debridement: Mild Bleeding Controlled with: Compression and gauze Patient tolerated procedure: Patient tolerated procedure well Post-Debridement Measurements and Additional Note: Post-Debridement Measurements/Treatment FLAKITO - Nurse 1 - General Ulcer Assessment Start: 05/17/22 10:24 Freq: Status: Active Protocol: DIMITRI Activity Type Activity Date Activity User E-sign Co-sign Detail Recorded Client Recorded Date Recorded By Document 05/17/22 10:24 VICKY [id number] 05/17/22 10:25 VICKY 05/17/22 10:24 WC - Today's Visit Information Type of service 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 Any new allergies or adverse reactions No Had a fall/change in ADL's that may No increase risk of falls Signs or symptoms of abuse and/or No neglect since last visit Have you been in the hospital since your No last visit? Has dressing in place as prescribed Yes Has compression in place as prescribed Yes Has offloadiing in place as prescribed N/A Experienced any changes in pain level or No management Left Footwear Regular Shoe Right Footwear Regular Shoe Pain Scale: 0-10 Numeric Is Patient Pain Free? Yes FLAKITO - Nurse 1 - General Ulcer Measurement Start: 05/17/22 10:24 Freq: Status: Active Protocol: Activity Type Activity Date Activity User E-sign Co-sign Detail Recorded Client Recorded Date Recorded By Document 05/17/22 10:24 KR [id number] 05/17/22 10:25 KR 05/17/22 10:24 Wound Center Nurse 1 #1 Left Box -Current Size (cm) - Length 4 -Current Size (cm) - Width 3.6 -Current Size (cm) - Depth 0.1 -Total Square Cm 14.4 -Exudate Amt Small -Exudate Type Serosanguineous -Wound Margin Distinct, Outline Attached -Granulation Amt Medium (34-66%) -Granulation Quality [place] -Necrosis Amt Medium (34-66%) -Necrotic Tissue Type Adherent Slough -Texture (Sofie-wound Skin Appearance) Assessed, Scarring -Moisture (Sofie-wound Skin Appearance) No Abnormality, Assessed -Color (Sofie-wound Skin Appearance) No Abnormality, Assessed -Temperature (Sofie-wound Skin No Abnormality Appearance) (Pt Warm) -Tenderness on Palpation (Sofie-wound No Skin Appearance) -Ulcer Cleansing Rinsed/ Irrigated with Saline -Foul Odor after Cleansing No -Anesthetic Used 5% Lidocaine Gel Left Calf (cm) 36 Left Ankle (cm) 23 WC - Nurse 2 - General Ulcer CM Notes Start: 05/17/22 10:24 Freq: Status: Active Protocol: Activity Type Activity Date Activity User E-sign Co-sign Detail Recorded Client Recorded Date Recorded By Document 05/17/22 10:56 MW [id number] 05/17/22 11:02 MW 05/17/22 10:56 Wound Center Nurse 2 #1 Left Box -Time 10:56 -Correct Patient Yes -Correct Side, Site, Position Yes -Correct Procedure Yes -Procedure Performed Yes -Type of Procedure Debridement -Clinical Debridement Subcutaneous -Tissue Removed Subcutaneous -Post Debridement (cm) - Length 5.0 -Post Debridement (cm) - Width 3.6 -Post Debridement (cm) - Depth 0.1 -Total Square (Post) (cm) 18.00 -Area of Debridement (cm) - Length 5.0 -Area of Debridement (cm) - Width 3.6 -Total Square (Area) (cm) 18.00 -Tunneling No -Undermining/Tunneling No -Circular Undermining No -Wound/Ulcer Outcome Not Healed -Ulcer Cleansing Rinsed/ Irrigated with Saline -Foul Odor after Cleansing No -Bioengineered Tissue No -Bleeding Controlled with Pressure,Silver Nitrate -Treatment Response Procedure Tolerated Well -Debridement - Subq, 1st 20sq cm Yes Pain Scale: 0-10 Numeric Is Patient Pain Free? Yes - Nurse 3 - General Ulcer D/C NN Start: 05/17/22 10:24 Freq: Status: Active Protocol: Activity Type Activity Date Activity User E-sign Co-sign Detail Recorded Client Recorded Date Recorded By Document 05/17/22 11:02 MW [id number] 05/17/22 11:03 MW 05/17/22 11:02 Wound Care Nurse 3 #1 Left Box -Ulcer Cleansing Wound Cleanser -Foul Odor after Cleansing No -Negative Pressure Wound Therapy N/A -Primary Dressing Applied Aquacel Extra, NonAdherent Contact Layer -Primary Dressing Covered/Secured with Dry Gauze & Roll Gauze, Secured with Tape -Aquacel Extra 2 Left -Lotion applied to leg before No compression wrap -Other single layer tubigrip Treatment Response Procedure Tolerated Well Pain Scale: 0-10 Numeric Is Patient Pain Free? Yes Teaching: Wound Center Dressing Your Wound -Person Taught Patient -Teaching Method Discussion, Demonstration -Response to teaching Verbalize understanding WC - Visit Discharge Discharge Condition Stable Ambulatory Status Ambulatory Transportation Private Auto Accompanied by self Medication Reconcilliation completed & No provided to patient/care provider Clinical Summary of Care Provided Yes Assessment/Plan Assessment/Plan (1) Traumatic open wound of lower leg with infection: CODE(S): S81.809A - Unspecified open wound, unspecified lower leg, initial encounter; L08.9 - Local infection of the skin and subcutaneous tissue, unspecified QUALIFIERS: Encounter type: subsequent encounter Laterality: left Qualified Code(s): S81.802D - Unspecified open wound, left lower leg, subsequent encounter; L08.9 - Local infection of the skin and subcutaneous tissue, unspecified PLAN: Wash the lower leg with antibacterial soap and water apply Aquacel extra to wound base moistened cover with Adaptic and then dry dressing over top every day follow-up in 1 week Wear a Tubigrip double layer to the left leg Obtained cultures will call with results (2) Nonhealing surgical wound: CODE(S): T81.89XA - Other complications of procedures, not elsewhere classified, initial encounter QUALIFIERS: Encounter type: subsequent encounter Qualified Code(s): T81.89XD - Other complications of procedures, not elsewhere classified, subsequent encounter
[2022-05-24 10:48] VITALS: BP 143/85; PULSE 92; RESP 18; TEMP 36.2
--- NOTE | 2022-05-24 13:02 | PCM.WC.PN ---
History of Present Illness Date of Service: 05/24/22 Chief Complaint: Follow-up on a left lower leg partial avulsion laceration from a door hinge back on April 09 History of Wound: 72-year-old white female carrying groceries cut her leg did go to the emergency room right away and received sutures for the partial avulsion laceration. Then she returned to the emergency room later when she started develop a hematoma underneath the sutures. The emergency room doctor then drained the clot. And the last time she went to the emergency room is because she thought it looked infected and that was on April 22 and they referred her to the wound center. Patient received clindamycin IV in the emergency department and is currently on Bactrim and Augmentin orally at this time Progress of Wound: The rather large avulsion laceration to her left lateral leg is healing well she is developing larger islands in the center. And she debrides easily of devitalized tissue around the edge of the wound. She is currently on antibiotic therapy for the wound when she grew bacteria but no anaerobes. Skin did hypergranulated and we did have to use nitro sticks to back it off. Surrounding tissue is less red and erythematous and she says less painful to do the dressing changes. Subjective Subjective Patient is pleased with results Objective Data Objective Data No sign of infection large areas of islands developing in the center and along the edge. Vital Signs: Vital Signs Temp Pulse Resp BP 97.1 F L 92 18 143/85 H 05/24/22 10:48 05/24/22 10:48 05/24/22 10:48 05/24/22 10:48 Physical Exam Const oriented x3 General Appearance: cooperative Exam Limitations: no limitations HEENT normocephalic Eyes PERRL Neck full ROM Resp normal respiratory effort Effort and Inspection: able to speak in complete sentences Auscultation: clear to auscultation bilaterally Cardio regular rate and regular rhythm Palpation: normal PMI Rate: regular rate Rhythm: regular rhythm GI Auscultation: normoactive bowel sounds Palpation: soft and no hepatosplenomegaly external exam normal Extremity normal to inspection General Extremity: normal exam except as noted Skin no rashes or lesions noted Skin Narrative: Sutured partial avulsion laceration to the left lower leg. The flap did not take and is more black and loose. Sutures around the edge approximately 14 Neuro oriented x3 Psych Appearance: grossly normal Speech: normal speech Thought Content: normal thought content Judgement: judgement good Debridement Note Debridement Note Wound debrided: Left keenan trauma Laterality: Left Type of Debridement: Excisional debridement Anesthesia Used: 5% Lidocaine Gel Depth: Down to and including healthy tissue Percentage of wound debrided: 100 Instrument Used: 7mm curette Tissue Removed: Devitalized tissue and fibrin Severity: Fat Layer Exposed Amount of bleeding with debridement: Mild Bleeding Controlled with: Compression and gauze Patient tolerated procedure: Patient tolerated procedure well Post-Debridement Measurements and Additional Note: Post-Debridement Measurements/Treatment - Nurse 1 - General Ulcer Assessment Start: 05/17/22 10:24 Freq: Status: Active Protocol: FLAKITOWEPOWER [employer] Activity Type Activity Date Activity User E-sign Co-sign Detail Recorded Client Recorded Date Recorded By Document 05/17/22 10:24 VICKY [id number] 05/17/22 10:25 KR Document 05/24/22 10:48 DL [id number] 05/24/22 10:55 DL 05/17/22 05/24/22 10:24 10:48 - Today's Visit Information Type of service Follow-up Visit Follow-up Visit (Physician/RESTAURANT SHIFT LEADER (Physician/RESTAURANT SHIFT LEADER ) ) Arrival Mode Ambulatory Ambulatory Transfer Assistance None Patient Identification Verified (Name & Yes Yes ) Patient Requires Transmission-Based No Precautions Vital Signs Temperature (97.8 F-99.1 F) 97.5 F L 97.1 F L Temperature Source Temporal Temporal Pulse Rate (60-100) 89 92 Pulse Location Monitor Monitor Respiratory Rate (12-18) 18 Respiratory rate source Observation Blood Pressure (90/60-120/80) 141/94 H 143/85 H Blood Pressure Mean (mm Hg) 109 104 Source Monitor Monitor Position Semi-Fowlers Blood Pressure Location Left Arm History Since Last Visit- (Skip if this is Patient's initial visit) Have you changed medications since your No No last visit? Any new allergies or adverse reactions No No Had a fall/change in ADL's that may No No increase risk of falls Signs or symptoms of abuse and/or No No neglect since last visit Have you been in the hospital since your No No last visit? Has dressing in place as prescribed Yes No Has compression in place as prescribed Yes No Has offloadiing in place as prescribed N/A N/A Experienced any changes in pain level or No Yes management Left Footwear Regular Shoe Right Footwear Regular Shoe Pain Scale: 0-10 Numeric Is Patient Pain Free? Yes Yes WC - Nurse 1 - General Ulcer Measurement Start: 05/17/22 10:24 Freq: Status: Active Protocol: Activity Type Activity Date Activity User E-sign Co-sign Detail Recorded Client Recorded Date Recorded By Document 05/17/22 10:24 KR [id number] 05/17/22 10:25 KR Document 05/24/22 10:48 DL [id number] 05/24/22 10:55 DL 05/17/22 05/24/22 10:24 10:48 Wound Center Nurse 1 #1 Left [place] -Current Size (cm) - Length 4 4.7 -Current Size (cm) - Width 3.6 5 -Current Size (cm) - Depth 0.1 0.1 -Total Square Cm 14.4 23.5 -Photo Taken No -Exudate Amt Small Large -Exudate Type Serosanguineous Serosanguineous -Wound Margin Distinct, Distinct, Outline Outline Attached Attached -Granulation Amt Medium (34-66%) Medium (34-66%) -Granulation Quality [place] Red -Necrosis Amt Medium (34-66%) Medium (34-66%) -Necrotic Tissue Type Adherent Slough Adherent Slough -Structure Exposed N/A -Texture (Sofie-wound Skin Appearance) Assessed, Scarring Scarring -Moisture (Sofie-wound Skin Appearance) No Abnormality, No Abnormality Assessed -Color (Sofie-wound Skin Appearance) No Abnormality, Erythema, Assessed Hemosiderin Staining -Temperature (Sofie-wound Skin No Abnormality No Abnormality Appearance) (Pt Warm) (Pt Warm) -Tenderness on Palpation (Sofie-wound No No Skin Appearance) -Ulcer Cleansing Rinsed/ Soap and Water Irrigated with Saline -Foul Odor after Cleansing No No -Anesthetic Used 5% Lidocaine 4% Lidocaine Gel Solution Left Calf (cm) 36 37 Left Ankle (cm) 23 22.4 WC - Nurse 2 - General Ulcer CM Notes Start: 05/17/22 10:24 Freq: Status: Active Protocol: Activity Type Activity Date Activity User E-sign Co-sign Detail Recorded Client Recorded Date Recorded By Document 05/17/22 10:56 MW [id number] 05/17/22 11:02 MW Document 05/24/22 10:58 [id number] 05/24/22 11:04 MW 05/17/22 05/24/22 10:56 10:58 Wound Center Nurse 2 #1 Left [place] -Time 10:56 10:59 -Correct Patient Yes Yes -Correct Side, Site, Position Yes Yes -Correct Procedure Yes Yes -Procedure Performed Yes Yes -Type of Procedure Debridement Debridement -Clinical Debridement Subcutaneous Subcutaneous -Tissue Removed Subcutaneous Subcutaneous -Post Debridement (cm) - Length 5.0 5.0 -Post Debridement (cm) - Width 3.6 3.5 -Post Debridement (cm) - Depth 0.1 0.1 -Total Square (Post) (cm) 18.00 17.50 -Area of Debridement (cm) - Length 5.0 5.0 -Area of Debridement (cm) - Width 3.6 3.5 -Total Square (Area) (cm) 18.00 17.50 -Tunneling No No -Undermining/Tunneling No No -Circular Undermining No No -Wound/Ulcer Outcome Not Healed Not Healed -Ulcer Cleansing Rinsed/ Rinsed/ Irrigated with Irrigated with Saline Saline -Foul Odor after Cleansing No No -Bioengineered Tissue No No -Bleeding Controlled with Pressure,Silver Pressure,Silver Nitrate Nitrate -Treatment Response Procedure Procedure Tolerated Well Tolerated Well -Offloading No -Debridement - Subq, 1st 20sq cm Yes Yes Pain Scale: 0-10 Numeric Is Patient Pain Free? Yes Yes WC - Nurse 3 - General Ulcer D/C NN Start: 05/17/22 10:24 Freq: Status: Active Protocol: Activity Type Activity Date Activity User E-sign Co-sign Detail Recorded Client Recorded Date Recorded By Document 05/17/22 11:02 [id number] 05/17/22 11:03 Document 05/24/22 11:06 [facility] [id number] 05/24/22 11:07 [facility] 05/17/22 05/24/22 11:02 11:06 Wound Care Nurse 3 #1 Left [place] -Ulcer Cleansing Wound Cleanser Rinsed/ Irrigated with Saline -Foul Odor after Cleansing No No -Negative Pressure Wound Therapy N/A -Primary Dressing Applied Aquacel Extra, Aquacel Extra, NonAdherent NonAdherent Contact Layer Contact Layer -Primary Dressing Covered/Secured with Dry Gauze & Dry Gauze & Roll Gauze, Roll Gauze, Secured with Secured with Tape Tape -Other Covering DRSG PER RB RN -Aquacel Extra 2 1 Left -Lotion applied to leg before No compression wrap -Tubular Bandage Single Layer -Size of Tubigrip Used Size E -Size E ($) 1 -Other single layer tubigrip Treatment Response Procedure Procedure Tolerated Well Tolerated Well Pain Scale: 0-10 Numeric Is Patient Pain Free? Yes Yes Teaching: Wound Center Dressing Your Wound -Person Taught Patient -Teaching Method Discussion, Demonstration -Response to teaching Verbalize understanding WC - Visit Discharge Discharge Condition Stable Stable Ambulatory Status Ambulatory Ambulatory Transportation Private Auto Private Auto Accompanied by self Medication Reconcilliation completed & No provided to patient/care provider Clinical Summary of Care Provided Yes Assessment/Plan Assessment/Plan (1) Traumatic open wound of lower leg with infection: CODE(S): S81.809A - Unspecified open wound, unspecified lower leg, initial encounter; L08.9 - Local infection of the skin and subcutaneous tissue, unspecified QUALIFIERS: Encounter type: subsequent encounter Laterality: left Qualified Code(s): S81.802D - Unspecified open wound, left lower leg, subsequent encounter; L08.9 - Local infection of the skin and subcutaneous tissue, unspecified PLAN: Wash the lower leg with antibacterial soap and water apply Aquacel extra to wound base moistened cover with Adaptic and then dry dressing over top every day follow-up in 1 week Wear a Tubigrip double layer to the left leg Patient started on levofloxacin 500 mg daily for 14 days (2) Nonhealing surgical wound: CODE(S): T81.89XA - Other complications of procedures, not elsewhere classified, initial encounter QUALIFIERS: Encounter type: subsequent encounter Qualified Code(s): T81.89XD - Other complications of procedures, not elsewhere classified, subsequent encounter
[2022-05-31 10:36] VITALS: BP 145/55; PULSE 92; TEMP 36.2
--- NOTE | 2022-05-31 12:02 | PN.PCM_ITS ---
History of Present Illness Date of Service: 05/31/22 Chief Complaint: Follow-up on a left lower leg partial avulsion laceration from a door hinge back on April 09 History of Wound: 72-year-old white female carrying groceries cut her leg did go to the emergency room right away and received sutures for the partial avulsion laceration. Then she returned to the emergency room later when she started develop a hematoma underneath the sutures. The emergency room doctor then drained the clot. And the last time she went to the emergency room is because she thought it looked infected and that was on April 22 and they referred her to the wound center. Patient received clindamycin IV in the emergency department and is currently on Bactrim and Augmentin orally at this time Progress of Wound: The rather large avulsion laceration to her left lateral leg is healing well she is developing larger islands in the center. And she debrides easily of devitalized tissue around the edge of the wound. She is currently on antibiotic therapy for the wound when she grew bacteria but no anaerobes. Skin did hypergranulated and we did have to use nitro sticks to back it off. Surrounding tissue is less red and erythematous and she says less painful to do the dressing changes. This week large islands of healed tissue no hyper granulation noted debrided a lot of scabbing and devitalized tissue. Subjective Subjective Patient is very happy with her outcome Objective Data Objective Data Large islands of healed tissue still in a cluster which makes it look large but only small little areas that she will have to finish with Promogran to heal closed. Vital Signs: Vital Signs Temp Pulse Resp BP 97.2 F L 92 18 145/55 H 05/31/22 10:36 05/31/22 10:36 05/24/22 10:48 05/31/22 10:36 Physical Exam Const oriented x3 General Appearance: cooperative Exam Limitations: no limitations HEENT normocephalic Eyes PERRL Neck full ROM Resp normal respiratory effort Effort and Inspection: able to speak in complete sentences Auscultation: clear to auscultation bilaterally Cardio regular rate and regular rhythm Palpation: normal PMI Rate: regular rate Rhythm: regular rhythm GI Auscultation: normoactive bowel sounds Palpation: soft and no hepatosplenomegaly external exam normal Extremity normal to inspection General Extremity: normal exam except as noted Skin no rashes or lesions noted Skin Narrative: Sutured partial avulsion laceration to the left lower leg. The flap did not take and is more black and loose. Sutures around the edge approximately 14 Neuro oriented x3 Psych Appearance: grossly normal Speech: normal speech Thought Content: normal thought content Judgement: judgement good Debridement Note Debridement Note Wound debrided: Left keenan trauma Laterality: Left Type of Debridement: Excisional debridement Anesthesia Used: 5% Lidocaine Gel Depth: in the subcutaneous layer Percentage of wound debrided: 100 Instrument Used: 7mm curette Tissue Removed: Fibrin and devitalized tissue Severity: Limited To Skin Breakdown Bleeding Controlled with: Compression and gauze Patient tolerated procedure: Patient tolerated procedure well Post-Debridement Measurements and Additional Note: Post-Debridement Measurements/Treatment - Nurse 1 - General Ulcer Assessment Start: 05/17/22 10:24 Freq: Status: Active Protocol: DIMITRI Activity Type Activity Date Activity User E-sign Co-sign Detail Recorded Client Recorded Date Recorded By Document 05/17/22 10:24 KR [id number] 05/17/22 10:25 KR Document 05/24/22 10:48 DL [id number] 05/24/22 10:55 DL Document 05/31/22 10:36 AK Desktop 05/31/22 10:38 AK 05/17/22 05/24/22 05/31/22 10:24 10:48 10:36 - Today's Visit Information Type of service Follow-up Visit Follow-up Visit Follow-up Visit (Physician/TIRE MOLD TESTER (Physician/TIRE MOLD TESTER (Physician/TIRE MOLD TESTER ) ) ) Arrival Mode Ambulatory Ambulatory Ambulatory Transfer Assistance None Patient Identification Verified (Name & Yes Yes Yes ) Patient Requires Transmission-Based No No Precautions Safety Precautions NA Vital Signs Temperature (97.8 F-99.1 F) 97.5 F L 97.1 F L 97.2 F L Temperature Source Temporal Temporal Temporal Pulse Rate (60-100) 89 92 92 Pulse Location Monitor Monitor Monitor Respiratory Rate (12-18) 18 Respiratory rate source Observation Blood Pressure (90/60-120/80) 141/94 H 143/85 H 145/55 H Blood Pressure Mean (mm Hg) 109 104 85 Source Monitor Monitor Monitor Position Semi-Fowlers Blood Pressure Location Left Arm History Since Last Visit- (Skip if this is Patient's initial visit) Have you changed medications since your No No No last visit? Any new allergies or adverse reactions No No No Had a fall/change in ADL's that may No No No increase risk of falls Signs or symptoms of abuse and/or No No No neglect since last visit Have you been in the hospital since your No No No last visit? Has dressing in place as prescribed Yes No Yes Has compression in place as prescribed Yes No Yes Has offloadiing in place as prescribed N/A N/A N/A Experienced any changes in pain level or No Yes No management Left Footwear Regular Shoe Regular Shoe Right Footwear Regular Shoe Regular Shoe Pain Scale: 0-10 Numeric Is Patient Pain Free? Yes Yes Yes WC - Nurse 1 - General Ulcer Measurement Start: 05/17/22 10:24 Freq: Status: Active Protocol: Activity Type Activity Date Activity User E-sign Co-sign Detail Recorded Client Recorded Date Recorded By Document 05/17/22 10:24 KR [id number] 05/17/22 10:25 KR Document 05/24/22 10:48 DL [id number] 05/24/22 10:55 DL Document 05/31/22 10:36 AK Desktop 05/31/22 10:38 AK 05/17/22 05/24/22 05/31/22 10:24 10:48 10:36 Wound Center Nurse 1 #1 Left Keenan -Combined with other wound No -Current Size (cm) - Length 4 4.7 3 -Current Size (cm) - Width 3.6 5 3.1 -Current Size (cm) - Depth 0.1 0.1 0.1 -Total Square Cm 14.4 23.5 9.3 -Photo Taken No Yes -Tunneling No -Undermining/Tunneling No -Circular Undermining No -Change in Wound Grade/Stage No -Exudate Amt Small Large Medium -Exudate Type Serosanguineous Serosanguineous Serosanguineous -Wound Margin Distinct, Distinct, Outline Outline Attached Attached -Granulation Amt Medium (34-66%) Medium (34-66%) Medium (34-66%) -Granulation Quality [place] -Slough/Fibrin Yes -Necrosis Amt Medium (34-66%) Medium (34-66%) Small (1-33%) -Necrotic Tissue Type Adherent Slough Adherent Slough Adherent Slough -Structure Exposed N/A N/A -Texture (Sofie-wound Skin Appearance) Assessed, Scarring Assessed, Scarring Scarring -Moisture (Sofie-wound Skin Appearance) No Abnormality, No Abnormality No Abnormality, Assessed Assessed -Color (Sofie-wound Skin Appearance) No Abnormality, Erythema, No Abnormality, Assessed Hemosiderin Assessed Staining -Temperature (Sofie-wound Skin No Abnormality No Abnormality No Abnormality Appearance) (Pt Warm) (Pt Warm) (Pt Warm) -Tenderness on Palpation (Sofie-wound No No No Skin Appearance) -Ulcer Cleansing Rinsed/ Soap and Water Rinsed/ Irrigated with Irrigated with Saline Saline -Foul Odor after Cleansing No No No -Anesthetic Used 5% Lidocaine 4% Lidocaine 5% Lidocaine Gel Solution Gel Lower Limb Edema Present No Left Calf (cm) 36 37 36 Left Ankle (cm) 23 22.4 23.6 WC - Nurse 2 - General Ulcer CM Notes Start: 05/17/22 10:24 Freq: Status: Active Protocol: Activity Type Activity Date Activity User E-sign Co-sign Detail Recorded Client Recorded Date Recorded By Document 05/17/22 10:56 MW [id number] 05/17/22 11:02 MW Document 05/24/22 10:58 MW [id number] 05/24/22 11:04 MW Document 05/31/22 10:45 MW [id number] 05/31/22 10:52 MW 05/17/22 05/24/22 05/31/22 10:56 10:58 10:45 Wound Center Nurse 2 #1 Left Keenan -Time 10:56 10:59 10:45 -Correct Patient Yes Yes Yes -Correct Side, Site, Position Yes Yes Yes -Correct Procedure Yes Yes Yes -Procedure Performed Yes Yes Yes -Type of Procedure Debridement Debridement Debridement -Clinical Debridement Subcutaneous Subcutaneous Subcutaneous -Tissue Removed Subcutaneous Subcutaneous Subcutaneous -Post Debridement (cm) - Length 5.0 5.0 3.0 -Post Debridement (cm) - Width 3.6 3.5 4.0 -Post Debridement (cm) - Depth 0.1 0.1 0.1 -Total Square (Post) (cm) 18.00 17.50 12.00 -Area of Debridement (cm) - Length 5.0 5.0 3.0 -Area of Debridement (cm) - Width 3.6 3.5 4.0 -Total Square (Area) (cm) 18.00 17.50 12.00 -Tunneling No No No -Undermining/Tunneling No No No -Circular Undermining No No No -Wound/Ulcer Outcome Not Healed Not Healed Not Healed -Ulcer Cleansing Rinsed/ Rinsed/ Rinsed/ Irrigated with Irrigated with Irrigated with Saline Saline Saline -Foul Odor after Cleansing No No No -Bioengineered Tissue No No No -Bleeding Controlled with Pressure,Silver Pressure,Silver Pressure Nitrate Nitrate -Treatment Response Procedure Procedure Procedure Tolerated Well Tolerated Well Tolerated Well -Offloading No No -Debridement - Subq, 1st 20sq cm Yes Yes Yes Pain Scale: 0-10 Numeric Is Patient Pain Free? Yes Yes Yes - Nurse 3 - General Ulcer D/C NN Start: 05/17/22 10:24 Freq: Status: Active Protocol: Activity Type Activity Date Activity User E-sign Co-sign Detail Recorded Client Recorded Date Recorded By Document 05/17/22 11:02 [id number] 05/17/22 11:03 MW Document 05/24/22 11:06 [facility] [id number] 05/24/22 11:07 BM Document 05/31/22 11:02 MW [id number] 05/31/22 11:03 MW 05/17/22 05/24/22 05/31/22 11:02 11:06 11:02 Wound Care Nurse 3 #1 Left Keenan -Ulcer Cleansing Wound Cleanser Rinsed/ Rinsed/ Irrigated with Irrigated with Saline Saline -Foul Odor after Cleansing No No No -Negative Pressure Wound Therapy N/A N/A -Primary Dressing Applied Aquacel Extra, Aquacel Extra, NonAdherent NonAdherent NonAdherent Contact Layer, Contact Layer Contact Layer Promogran -Primary Dressing Covered/Secured with Dry Gauze & Dry Gauze & Dry Gauze & Roll Gauze, Roll Gauze, Roll Gauze, Secured with Secured with Secured with Tape Tape Tape -Other Covering DRSG PER RB RN -Aquacel Extra 2 1 -Promogran 1 Left -Lotion applied to leg before No No compression wrap -Tubular Bandage Single Layer -Size of Tubigrip Used Size E -Size E ($) 1 -Other single layer TUBIGRIP tubigrip Treatment Response Procedure Procedure Procedure Tolerated Well Tolerated Well Tolerated Well Pain Scale: 0-10 Numeric Is Patient Pain Free? Yes Yes Yes Teaching: Wound Center Dressing Your Wound -Person Taught Patient Patient -Teaching Method Discussion, Discussion, Demonstration Demonstration -Response to teaching Verbalize Verbalize understanding understanding WC - Visit Discharge Discharge Condition Stable Stable Stable Ambulatory Status Ambulatory Ambulatory Ambulatory Transportation Private Auto Private Auto Private Auto Accompanied by self SELF Medication Reconcilliation completed & No No provided to patient/care provider Clinical Summary of Care Provided Yes Yes Assessment/Plan Assessment/Plan (1) Traumatic open wound of lower leg with infection: CODE(S): S81.809A - Unspecified open wound, unspecified lower leg, initial encounter; L08.9 - Local infection of the skin and subcutaneous tissue, unspecified QUALIFIERS: Encounter type: subsequent encounter Laterality: left Qualified Code(s): S81.802D - Unspecified open wound, left lower leg, subsequent encounter; L08.9 - Local infection of the skin and subcutaneous tissue, unspecified PLAN: Wash the lower leg with antibacterial soap and water apply Promogran to wound base moistened cover with Adaptic and then dry dressing over top every day follow-up in 1 week Wear a Tubigrip double layer to the left leg (2) Nonhealing surgical wound: CODE(S): T81.89XA - Other complications of procedures, not elsewhere classified, initial encounter QUALIFIERS: Encounter type: subsequent encounter Qualified Code(s): T81.89XD - Other complications of procedures, not elsewhere classified, subsequent encounter
== END 2022-06-09 23:59 | disposition home or self-care (01) ==
LOC: WC 10:30
PROVIDERS: PCP Family Medicine; Visit Provider Nurse Practitioner
DX: T81.89XD Other complications of procedures, not elsewhere classified, subsequent encounter (principal); S81.812D Laceration without foreign body, left lower leg, subsequent encounter; L08.9 Local infection of the skin and subcutaneous tissue, unspecified; W22.09XD Striking against other stationary object, subsequent encounter
CPT/HCPCS: 11042

== ENCOUNTER 2022-06-21 10:45 | Outpatient (RCR) | payer MEDICARE, SELFPAY ==
[2022-06-10 01:38] VITALS: BP 145/55; PULSE 92; RESP 18; TEMP 36.2
[2022-06-14 12:08] VITALS: BP 138/69; PULSE 69; TEMP 36.1
--- NOTE | 2022-06-14 13:11 | PN.PCM_ITS ---
History of Present Illness Date of Service: 06/14/22 Chief Complaint: Follow-up on a left lower leg partial avulsion laceration from a door hinge back on April 09 History of Wound: 72-year-old white female carrying groceries cut her leg did go to the emergency room right away and received sutures for the partial avulsion laceration. Then she returned to the emergency room later when she started develop a hematoma underneath the sutures. The emergency room doctor then drained the clot. And the last time she went to the emergency room is because she thought it looked infected and that was on April 22 and they referred her to the wound center. Patient received clindamycin IV in the emergency department and is currently on Bactrim and Augmentin orally at this time Progress of Wound: This wound is almost healed and has just very small small area open. Patient opted she wanted to come back and be seen next week but she could have been discharged today at how good it looked. Subjective Subjective Very pleased with her outcome Objective Data Objective Data No sign of infection majority of it is healed has a small divot that has not filled in yet. We will continue using Promogran Vital Signs: Vital Signs Temp Pulse Resp BP 96.9 F L 69 18 138/69 H 06/14/22 12:08 06/14/22 12:08 06/10/22 01:38 06/14/22 12:08 Lab / Micro Data Attestation: I reviewed the patient's lab results. Physical Exam Const oriented x3 General Appearance: cooperative Exam Limitations: no limitations HEENT normocephalic Eyes PERRL Neck full ROM Resp normal respiratory effort Effort and Inspection: able to speak in complete sentences Auscultation: clear to auscultation bilaterally Cardio regular rate and regular rhythm Palpation: normal PMI Rate: regular rate Rhythm: regular rhythm GI Auscultation: normoactive bowel sounds Palpation: soft and no hepatosplenomegaly external exam normal Extremity normal to inspection General Extremity: normal exam except as noted Skin no rashes or lesions noted Skin Narrative: Sutured partial avulsion laceration to the left lower leg. The flap did not take and is more black and loose. Sutures around the edge approximately 14 Neuro oriented x3 Psych Appearance: grossly normal Speech: normal speech Thought Content: normal thought content Judgement: judgement good Debridement Note Debridement Note Wound debrided: Left keenan traumatic wound Type of Debridement: Selective debridement Anesthesia Used: 5% Lidocaine Gel Depth: Down to and including healthy tissue Percentage of wound debrided: 100 Instrument Used: - (Gauze) Tissue Removed: Fibrin Severity: Limited To Skin Breakdown Amount of bleeding with debridement: None Bleeding Controlled with: Pressure Patient tolerated procedure: Patient tolerated procedure well Post-Debridement Measurements and Additional Note: Post-Debridement Measurements/Treatment FLAKITO Chan Nurse 1 - General Ulcer Assessment Start: 06/14/22 10:53 Freq: Status: Active Protocol: DIMITRI Activity Type Activity Date Activity User E-sign Co-sign Detail Recorded Client Recorded Date Recorded By Document 06/14/22 12:08 YENI [id number] 06/14/22 12:10 YENI 06/14/22 12:08 FLAKITO - Today's Visit Information Type of service Follow-up Visit (Physician/ELECTRICAL & INSTRUMENTATION SUPERVISOR ) Arrival Mode Ambulatory Patient Identification Verified (Name & Yes ) Patient Requires Transmission-Based No Precautions Vital Signs Temperature (97.8 F-99.1 F) 96.9 F L Temperature Source Oral Pulse Rate (60-100) 69 Pulse Location Monitor Blood Pressure (90/60-120/80) 138/69 H Blood Pressure Mean (mm Hg) 92 Source Monitor History Since Last Visit- (Skip if this is Patient's initial visit) Have you changed medications since your No last visit? Any new allergies or adverse reactions No Had a fall/change in ADL's that may No increase risk of falls Signs or symptoms of abuse and/or No neglect since last visit Have you been in the hospital since your No last visit? Has dressing in place as prescribed Yes Has compression in place as prescribed Yes Has offloadiing in place as prescribed N/A Experienced any changes in pain level or No management Left Footwear Regular Shoe Right Footwear Regular Shoe Pain Scale: 0-10 Numeric Is Patient Pain Free? Yes Dustin Nurse 1 - General Ulcer Measurement Start: 06/14/22 10:53 Freq: Status: Active Protocol: Activity Type Activity Date Activity User E-sign Co-sign Detail Recorded Client Recorded Date Recorded By Document 06/14/22 12:08 YENI [id number] 06/14/22 12:10 YENI 06/14/22 12:08 Wound Center Nurse 1 #1 Left Keenan -Combined with other wound No -Current Size (cm) - Length 0.1 -Current Size (cm) - Width 0.1 -Current Size (cm) - Depth 0.1 -Total Square Cm 0.01 -Photo Taken No -Tunneling No -Undermining/Tunneling No -Circular Undermining No -Change in Wound Grade/Stage No -Exudate Amt None Present -Wound Margin Distinct, Outline Attached -Granulation Amt None Present (0 %) -Granulation Quality N/A -Slough/Fibrin No -Necrosis Amt None Present (0 %) -Structure Exposed N/A -Texture (Sofie-wound Skin Appearance) No Abnormality, Assessed -Moisture (Sofie-wound Skin Appearance) No Abnormality, Assessed -Color (Sofie-wound Skin Appearance) No Abnormality, Assessed -Temperature (Sofie-wound Skin No Abnormality Appearance) (Pt Warm) -Tenderness on Palpation (Sofie-wound No Skin Appearance) -Ulcer Cleansing Rinsed/ Irrigated with Saline -Foul Odor after Cleansing No -Anesthetic Used 5% Lidocaine Gel Lower Limb Edema Present No Right Calf (cm) 35.6 Right Ankle (cm) 22 Left Calf (cm) 34 Left Ankle (cm) 22 WC - Nurse 2 - General Ulcer CM Notes Start: 06/14/22 10:53 Freq: Status: Active Protocol: Activity Type Activity Date Activity User E-sign Co-sign Detail Recorded Client Recorded Date Recorded By Document 06/14/22 10:54 MW [id number] 06/14/22 10:55 MW 06/14/22 10:54 Wound Center Nurse 2 #1 Left Keenan -Time 10:54 -Correct Patient Yes -Correct Side, Site, Position Yes -Correct Procedure Yes -Procedure Performed Yes -Type of Procedure Debridement -Clinical Debridement Epidermis / Dermis -Tissue Removed Epidermis -Post Debridement (cm) - Length 0.2 -Post Debridement (cm) - Width 0.2 -Post Debridement (cm) - Depth 0.1 -Total Square (Post) (cm) 0.04 -Area of Debridement (cm) - Length 0.2 -Area of Debridement (cm) - Width 0.2 -Total Square (Area) (cm) 0.04 -Tunneling No -Undermining/Tunneling No -Circular Undermining No -Wound/Ulcer Outcome Not Healed -Ulcer Cleansing Rinsed/ Irrigated with Saline -Foul Odor after Cleansing No -Bioengineered Tissue No -Bleeding Controlled with Pressure -Treatment Response Procedure Tolerated Well -Offloading No -Debridement - Open, 1st 20sq cm Yes Pain Scale: 0-10 Numeric Is Patient Pain Free? Yes Assessment/Plan Assessment/Plan (1) Traumatic open wound of lower leg with infection: CODE(S): S81.809A - Unspecified open wound, unspecified lower leg, initial encounter; L08.9 - Local infection of the skin and subcutaneous tissue, unspecified QUALIFIERS: Encounter type: subsequent encounter Laterality: left Qualified Code(s): S81.802D - Unspecified open wound, left lower leg, subsequent encounter; L08.9 - Local infection of the skin and subcutaneous tissue, unspecified PLAN: Wash the lower leg with antibacterial soap and water apply Promogran to wound base moistened cover with Adaptic and then dry dressing over top every day follow-up in 1 week Wear a Tubigrip double layer to the left leg (2) Nonhealing surgical wound: CODE(S): T81.89XA - Other complications of procedures, not elsewhere classified, initial encounter QUALIFIERS: Encounter type: subsequent encounter Qualified Code(s): T81.89XD - Other complications of procedures, not elsewhere classified, subsequent encounter
[2022-06-21 10:58] VITALS: BP 158/89; PULSE 76; RESP 16; TEMP 36.6
--- NOTE | 2022-06-21 11:58 | PN.PCM_ITS ---
History of Present Illness Date of Service: 06/21/22 Chief Complaint: Follow-up on a left lower leg partial avulsion laceration from a door hinge back on April 09 History of Wound: 72-year-old white female carrying groceries cut her leg did go to the emergency room right away and received sutures for the partial avulsion laceration. Then she returned to the emergency room later when she started develop a hematoma underneath the sutures. The emergency room doctor then drained the clot. And the last time she went to the emergency room is because she thought it looked infected and that was on April 22 and they referred her to the wound center. Patient received clindamycin IV in the emergency department and is currently on Bactrim and Augmentin orally at this time Progress of Wound: Wound is healed patient be discharged from the wound center Subjective Subjective Patient asked extremely pleased with her outcome Objective Data Objective Data Skin is well approximated no sign of infection all healed Vital Signs: Vital Signs Temp Pulse Resp BP O2 Del Method 97.9 F 76 16 158/89 H Room Air 06/21/22 10:58 06/21/22 10:58 06/21/22 10:58 06/21/22 10:58 06/21/22 10:58 Oxygen Delivery Method Room Air Lab / Micro Data Attestation: I reviewed the patient's lab results. Physical Exam Const oriented x3 General Appearance: cooperative Exam Limitations: no limitations HEENT normocephalic Eyes PERRL Neck full ROM Resp normal respiratory effort Effort and Inspection: able to speak in complete sentences Auscultation: clear to auscultation bilaterally Cardio regular rate and regular rhythm Palpation: normal PMI Rate: regular rate Rhythm: regular rhythm GI Auscultation: normoactive bowel sounds Palpation: soft and no hepatosplenomegaly external exam normal Extremity normal to inspection General Extremity: normal exam except as noted Skin no rashes or lesions noted Skin Narrative: Sutured partial avulsion laceration to the left lower leg. The flap did not take and is more black and loose. Sutures around the edge approximately 14 Neuro oriented x3 Psych Appearance: grossly normal Speech: normal speech Thought Content: normal thought content Judgement: judgement good Debridement Note Debridement Note No debridement was completed: No debridement was completed today Post-Debridement Measurements and Additional Note: Post-Debridement Measurements/Treatment WC - Nurse 1 - General Ulcer Assessment Start: 06/14/22 10:53 Freq: Status: Active Protocol: DIMITRI Activity Type Activity Date Activity User E-sign Co-sign Detail Recorded Client Recorded Date Recorded By Document 06/14/22 12:08 AK [id number] 06/14/22 12:10 AK Document 06/21/22 10:58 [facility] Desktop 06/21/22 11:06 BMF 06/14/22 06/21/22 12:08 10:58 - Today's Visit Information Type of service Follow-up Visit Follow-up Visit (Physician/SEWER MAINTENANCE SUPERVISOR (Physician/SEWER MAINTENANCE SUPERVISOR ) ) Arrival Mode Ambulatory Ambulatory Transfer Assistance None Patient Identification Verified (Name & Yes Yes ) Patient Requires Transmission-Based No No Precautions Vital Signs Temperature (97.8 F-99.1 F) 96.9 F L 97.9 F Temperature Source Oral Temporal Pulse Rate (60-100) 69 76 Pulse Location Monitor Monitor Respiratory Rate (12-18) 16 Respiratory rate source Observation Oxygen Delivery Method Room Air Blood Pressure (90/60-120/80) 138/69 H 158/89 H Blood Pressure Mean (mm Hg) 92 112 Source Monitor Monitor Position Sitting Blood Pressure Location Left Arm History Since Last Visit- (Skip if this is Patient's initial visit) Have you changed medications since your No No last visit? Any new allergies or adverse reactions No No Had a fall/change in ADL's that may No No increase risk of falls Signs or symptoms of abuse and/or No No neglect since last visit Have you been in the hospital since your No No last visit? Has dressing in place as prescribed Yes Yes Has compression in place as prescribed Yes Yes Has offloadiing in place as prescribed N/A N/A Experienced any changes in pain level or No No management Left Footwear Regular Shoe Regular Shoe Right Footwear Regular Shoe Regular Shoe Pain Scale: 0-10 Numeric Is Patient Pain Free? Yes Yes - Nurse 1 - General Ulcer Measurement Start: 06/14/22 10:53 Freq: Status: Active Protocol: Activity Type Activity Date Activity User E-sign Co-sign Detail Recorded Client Recorded Date Recorded By Document 06/14/22 12:08 YENI [id number] 06/14/22 12:10 AK Document 06/21/22 10:58 [facility] Desktop 06/21/22 11:06 [facility] 06/14/22 06/21/22 12:08 10:58 Wound Center Nurse 1 #1 Left Box -Combined with other wound No No -Current Size (cm) - Length 0.1 0.1 -Current Size (cm) - Width 0.1 0.1 -Current Size (cm) - Depth 0.1 0.1 -Total Square Cm 0.01 0.01 -Date of Last Picture (Recall this 06/21/22 field) -Photo Taken No Yes -Epithelialization Large 67-100% -Tunneling No No -Undermining/Tunneling No No -Circular Undermining No No -Change in Wound Grade/Stage No -Exudate Amt None Present None Present -Wound Margin Distinct, Distinct, Outline Outline Attached Attached -Granulation Amt None Present (0 None Present (0 %) %) -Granulation Quality N/A -Slough/Fibrin No Yes -Necrosis Amt None Present (0 Small (1-33%) %) -Necrotic Tissue Type Adherent Slough -Structure Exposed N/A -Texture (Sofie-wound Skin Appearance) No Abnormality, Assessed, Assessed Scarring -Moisture (Sfoie-wound Skin Appearance) No Abnormality, Assessed,Dry/ Assessed Scaly -Color (Sofie-wound Skin Appearance) No Abnormality, Assessed Assessed -Temperature (Sofie-wound Skin No Abnormality No Abnormality Appearance) (Pt Warm) (Pt Warm) -Tenderness on Palpation (Sofie-wound No No Skin Appearance) -Ulcer Cleansing Rinsed/ Rinsed/ Irrigated with Irrigated with Saline Saline -Foul Odor after Cleansing No No -Anesthetic Used 5% Lidocaine 5% Lidocaine Gel Gel -Wound Comment(s) dried slough Lower Limb Edema Present No Right Calf (cm) 35.6 Right Ankle (cm) 22 Left Calf (cm) 34 37 Left Ankle (cm) 22 22.7 WC - Nurse 2 - General Ulcer CM Notes Start: 06/14/22 10:53 Freq: Status: Active Protocol: Activity Type Activity Date Activity User E-sign Co-sign Detail Recorded Client Recorded Date Recorded By Document 06/14/22 10:54 MW [id number] 06/14/22 10:55 MW Document 06/21/22 11:13 MW [id number] 06/21/22 11:14 MW 06/14/22 06/21/22 10:54 11:13 Wound Center Nurse 2 #1 Left Box -Time 10:54 11:13 -Correct Patient Yes Yes -Correct Side, Site, Position Yes Yes -Correct Procedure Yes Yes -Procedure Performed Yes No -Type of Procedure Debridement -Clinical Debridement Epidermis / Dermis -Tissue Removed Epidermis -Post Debridement (cm) - Length 0.2 -Post Debridement (cm) - Width 0.2 -Post Debridement (cm) - Depth 0.1 -Total Square (Post) (cm) 0.04 -Area of Debridement (cm) - Length 0.2 -Area of Debridement (cm) - Width 0.2 -Total Square (Area) (cm) 0.04 -Tunneling No No -Undermining/Tunneling No No -Circular Undermining No No -Wound/Ulcer Outcome Not Healed Healed- Epithelialized -Ulcer Cleansing Rinsed/ Irrigated with Saline -Foul Odor after Cleansing No -Bioengineered Tissue No -Bleeding Controlled with Pressure -Treatment Response Procedure Tolerated Well -Offloading No -Debridement - Open, 1st 20sq cm Yes Pain Scale: 0-10 Numeric Is Patient Pain Free? Yes Yes - Nurse 3 - General Ulcer D/C NN Start: 06/14/22 10:53 Freq: Status: Active Protocol: Activity Type Activity Date Activity User E-sign Co-sign Detail Recorded Client Recorded Date Recorded By Document 06/21/22 11:14 MW [id number] 06/21/22 11:15 MW 06/21/22 11:14 Wound Care Nurse 3 Treatment Response Procedure Tolerated Well Pain Scale: 0-10 Numeric Is Patient Pain Free? Yes Teaching: Wound Center Discharge Instructions -Person Taught Patient -Teaching Method Discussion -Response to teaching Verbalize understanding WC - Visit Discharge Discharge Condition Stable Ambulatory Status Ambulatory Transportation Private Auto Accompanied by self Medication Reconcilliation completed & No provided to patient/care provider Clinical Summary of Care Provided Yes Assessment/Plan Assessment/Plan (1) Traumatic open wound of lower leg with infection: CODE(S): S81.809A - Unspecified open wound, unspecified lower leg, initial encounter; L08.9 - Local infection of the skin and subcutaneous tissue, unspecified QUALIFIERS: Encounter type: subsequent encounter Laterality: left Qualified Code(s): S81.802D - Unspecified open wound, left lower leg, subsequent encounter; L08.9 - Local infection of the skin and subcutaneous tissue, unspecified PLAN: Discharge from the wound center follow-up as needed (2) Nonhealing surgical wound: CODE(S): T81.89XA - Other complications of procedures, not elsewhere classified, initial encounter QUALIFIERS: Encounter type: subsequent encounter Qualified Code(s): T81.89XD - Other complications of procedures, not elsewhere classified, subsequent encounter
== END 2022-06-21 14:31 | disposition home or self-care (01) ==
LOC: WC 10:45
PROVIDERS: PCP Family Medicine; Visit Provider Nurse Practitioner
DX: S81.812D Laceration without foreign body, left lower leg, subsequent encounter (principal); W22.8XXD Striking against or struck by other objects, subsequent encounter
CPT/HCPCS: 97597; 99213; G0463

== ENCOUNTER 2023-04-11 06:53 | Observation (INO) | payer MEDICARE, SELFPAY ==
[2023-03-26 13:01] LABS: Absolute Lymphocyte Count 1.24 X10^3/uL (0.83-4.51); Absolute Neutrophil Count 3.8 X10^3/uL (2.0-7.7); Basophil# 0.03 X10^3/uL; Basophil% 0.5 % (0-1); Eosinophils% 1.8 % (0-5); Hematocrit 45.2 % (37-47); Hemoglobin 15.1 g/dL (12.0-15.0); Lymphocyte # 1.24 X10^3/ul (0.83-4.51); Lymphocyte % 22.3 % (19-41); Mean Corp Hgb Conc 33.4 g/dL (32-36); Mean Corpuscular Hgb 30.8 pg (27.0-32.0); Mean Corpuscular Volume 92.2 fL (81-99); Mean Platelet Vol. 10.2 fl (6.2-12.0); Monocyte# 0.34 X10^3/uL; Monocyte% 6.1 % (0-10); NRBC Flagged by Analyzer 0 % (0-5); Neutrophil # 3.84 X10^3/uL (2.7-7.7); Neutrophil % 69.1 % (47-70); Platelet Count 255 K/mm3 (150-450); RBC Distribution Width CV 13.7 % (11.6-14.6); RBC Distribution Width SD 46.4 fl (35.1-43.9); White Blood Count 5.6 K/mm3 (4.4-11.0)
[2023-03-26 13:29] LABS: Magnesium 2.3 mg/dL (1.6-2.6)
[2023-03-26 13:32] LABS: Albumin, Serum 3.8 g/dL (3.2-5.0); Anion Gap 4 (5-15); BUN 15 mg/dL (7-18); BUN/Creat Ratio 24.1 RATIO (10-20); Chloride 107 mmol/L (98-107); Creatinine, Serum 0.62 mg/dL (0.55-1.02); EST Glomerular Filtration Rate 100 mL/min (>60); Est Glom Filt Rate - Afr Amer 120 mL/min (>60); Glucose 86 mg/dL (74-106); Sodium Level 138 mmol/L (136-145)
--- NOTE | 2023-04-03 09:03 | PCM.HP.BLA ---
History and Physical DATE OF PRE-OPERATIVE EXAM: 03/30/2023 DATE OF SURGERY:? 04/11/2023 SCHEDULED PROCEDURE: direct anterior right total hip arthroplasty? HISTORY OF PRESENT ILLNESS: ?Patient is a 72-year-old female with a chief complaint of right hip pain. Patient complains of pain with 2 year duration. The pain is 8 on a scale of 10. The pain is increased with stairs, walking, sitting, getting in and out of a car, laying on the right side. Patient reports start up pain. The pain is located in the right groin and anterior thigh, some lateral hip pain. She denies numbness or tingling in the right leg. The patient states that the pain does awaken them at night. Activity modification include a reduced ability to perform normal activity including putting on socks and shoes. The patient does not perceive that the affected leg is shorter than the other. Previous treatments include topical ointments, Ibuprofen with temporary relief. The patient has a history of left total hip and notes right hip pain is similar to the left prior to surgery.? ? ?Patient failed conservative treatment opetions and would like to proceed with direct antierior right total hip arthroplasty.? REVIEW OF SYSTEMS: Review Of Systems: Constitutional: Reports weight change, but denies change in appetite and fever. Cardiovasular: Denies chest pain, heart murmur and irregular heartbeat. Respiratory: Denies cough, pneumonia, shortness of breath, tuberculosis and wheezing. Gastrointestinal: Reports diarrhea and heartburn, but denies constipation, nausea, rectal itching, bloody stools and vomiting. Genitourinary: . (F Genital Sx) Reports incontinence. Musculoskeletal: Reports swelling, but denies leg swelling, pain, trouble walking and weakness. Skin: Denies Raynaud's, history of shingles and tattoo. Neurological: Reports ambulatory dysfunction and numbness/tingling but denies dizziness and tremor. Psychiatric: Denies anxiety, insomnia and stress. Hematologic/Lymphatic: Reports anemia, but denies bleeding/bruising tendency and past transfusion. Reviewed, no changes. PAST MEDICAL HISTORY: Advance Care Plan: No Advance Directives Effective Date: 01/10/2021 Past Medical History: Medical Problems: Arthritis, Depression, Labrynthitis History Of Blood Clots/ DVT - when ? Accidents: Other - (03/2022) LT LEG, [place] LACERATION FROM FALL, [facility]? Surgical Hx: Hysterectomy Hip Replacement LT - (03/09/2021) SAW @ [facility] Anesthesia Complications: None Assistive Devices: Glasses Reviewed and updated. SOCIAL HISTORY: Social History: Marital: .Occupation: Retired.Work Status: Retired.Hand Dominance: Right-handed. Personal Habits:? Cigarette Use: Never Smoked Cigarettes.Smokeless Tobacco: Never Used Smokeless Tobacco.E-Cigarette Use: Never used.Alcohol: Denies use.Drug Use: Denies Use.Enjoy Exercising: Exercises 1-3 X/Week. Reviewed and updated. VITALS: Ht: 61 Wt: 175lb Wt k.380 BMI: 33.1 BP: 122/74 Pulse: 82 Resp: 18 T: 97.4 T: 36.3C Pain Level: 1 O2SatR: 97 ALLERGIES: No Known Drug Allergy No Known Substance Allergies? MEDICATIONS: Sertraline HCL 100 mg 1 by mouth every day, Vitamin C 500 mg 1/2 TAB? by mouth every day, Vitamin D3 50 mcg (2000 Ut) 1 by mouth every day, Elderberry? 1po qday, Oxybutynin Chloride ER 10 mg 1 by mouth every day, SM B Super Vitamin Complex? 1 by mouth every day, Boost High Protein? 2 daily PRE-OP EXAM:? General appearance:NORMAL? ? ? Other: Eyes: Conjunctivae and lids: NORMAL? Pupils: ERR Ears, Nose, Mouth, and Throat: NORMAL? Other: Inspection of lips, teeth and gums: NORMAL? ?Other: Neck: Examination of neck: no masses noted. Respiratory: Assessment of respiratory effort: NORMAL? ?Other: ?Auscultation of lungs: clear to auscultation no wheezes, rhonchi or rales. Cardiovascular:? Auscultation of heart: regular rate and rhythm, no murmurs, gallops or rubs. Exam of carotid arteries: NORMAL? ?Other: Gastrointestinal:? Exam of abdomen: soft, nontender, nondistended bowel sounds present. Lymphatic:? Palpation of nodes in neck:? NORMAL? ? ?Other: ? Palpation of nodes in Axillae: NORMAL? ?Other: Neurological: see below Psychiatric:? Orientation to time, place and person: NORMAL? ? ?Other: ?Mood and affect: NORMAL? ?Other: PHYSICAL EXAMINATION: Exam: Const: Appears healthy.? No signs of apparent distress present.? Alert and oriented x 3.? Musculo: Antalgic gait? Hips: ?Insp/Palp: Leg lengths are equal Left hip: scar is well healed. Flexion 90 degrees, internal rotation 10 degrees, external rotation 25 degrees. Right hip: on medial lower leg there is eschar and redness with large area of ecchymosis. Flexion 80 degrees, internal rotation 5 degrees, external rotation 20 degrees. Groin pain is reproduced with flexion, obligatory external rotation with flexion 5/5 hip flexion strength bilaterally with associated pain on the right? Skin: Skin is warm, dry and intact.? Neuro: Sensation to light touch is intact in the lower extremities deep peroneal, lower extremities dorsal cutaneous, lower extremities saphenous, lower extremities sural and lower extremities tibial nerve distribution.? Neurological and vascular function intact. IMAGING STUDIES: Complete series of the right hip with AP pelvis, AP hip and crossfire lateral reviewed today reveal joint space narrowing, subchondral sclerosis and osteophyte formation consistent with severe stage IV [id number] erosive osteoarthritis.? On AP pelvis patient has stable well fixed left total hip replacement. IMPRESSION: 1. grade iV osteoarthritis right hip 2. Arthritis 3. Depression 4. Labrynthitis 5. History Of Blood Clots/ DVT PLAN: +history of DVT/PE Patient denies open wounds or sores over the body, no allergies to antibiotics and no current antibiotic use. No current dental issues xarelto 10mg once daily x 2 weeks followed by Aspirin 81 twice a day ?2 weeks for DVT prophylaxis postoperatively At this time patient has consented to proceed with a direct anterior right total hip arthroplasty .? Dr. Ramírez did discuss and review with the patient all treatment options including surgical versus nonsurgical options.? Patient does wish to proceed with the above-stated procedure.? Potential risk, benefits, and complications of the procedure were discussed in detail including but not limited to , infection, nerve and blood vessel damage, persistent pain, numbness, tingling, paresthesias, blood clot, pulmonary embolism, and requirement for possible further surgery.? The patient expressed full understanding and has no further questions for the doctor.? Patient does agree to proceed with the above-stated procedure and has signed the surgery consent form. I have reviewed the [place] Automated Rx Reporting System (OARRS) report for this patient for refill pattern and other prescriber involvement as part of the appropriate surveillance for the provision of acute and chronic controlled medications.? The report was requested and reviewed on the date of this entry and was considered in the prescribing process. Discussed with the patient the risks associated with the COVID-19 virus including the risk of exposure while at the hospital.? The patient was reassured local hospitals have low infection rates and taken all necessary precautions to limit patient exposure to COVID-19.? Limiting the patient's time in the hospital may decrease their exposure to COVID-19.? The patient was notified that we will need to comply with any screening or testing the hospital wishes to perform and that surgery may be delayed for any positive test results.
[2023-04-11] VITALS (18 sets, daily range): BP systolic 97–130; BP diastolic 38–99; PULSE 68–93; RESP 16–18; TEMP 36.3–37.1; O2SAT 93–100; BMI 33.7
[2023-04-11] MEDS: Lactated Ringers 1,000 ML 999 ML IV ×2 (06:40→11:53)
[2023-04-11] MEDS: Magnesium 1 GM over 15 mins IV (06:50)
--- NOTE | 2023-04-11 06:54 | RAD_ITS ---
STUDY: X-RAY - PELVIS AND RIGHT HIP REASON FOR EXAM: Female, 73 years old. Post Op -- AP both hips on single lizzette/lateral of op hip PACU TECHNIQUE: 3 views of the pelvis and hip. COMPARISON: None. FINDINGS: Intraoperative views were obtained for total hip replacement. RAD/Hip Min 2 Views (Portable) IMPRESSION: Intraoperative imaging provided for total hip replacement. Electronically Signed: Warren Ayala MD at 12:03 EDT ,
[2023-04-11] MEDS: Celecoxib 200 MG Capsule 400 MG PO (07:12)
[2023-04-11] MEDS: Gabapentin 600 MG Tablet PO (07:12)
[2023-04-11] MEDS: Acetaminophen 500 MG Tablet 1000 MG PO ×3 (07:12→22:51)
[2023-04-11 07:40] LABS: Bedside Glucose 161 mg/dL (74-106)
[2023-04-11] MEDS: dexAMETHasone 10 MG/ML Vial IV (08:42)
[2023-04-11] MEDS: Cefazolin 2 GM in 0.9% Normal Saline 100 ML IV (08:44)
--- NOTE | 2023-04-11 08:45 | HIP_PTH ---
PATIENT: MAHESH SAVAGE LOC: [facility] U#:[id number] AGE/SX: 73/F ROOM: ME305 RE04/11/[address]: Dr. Juan M Ramírez MD : 1950 BED: 1 DIS: 04/12/2023 SPEC #: [id number] RECD: 04/11/23 11:32 STATUS: KENYA NASH #: [id number] KATIE: 04/11/23 08:[address]: Juan M Ramírez DEPT: SURGICAL PATHOLOGY RECD BY: Moon Benavides ENTERED: 04/11/23 13:32 SP TYPE: TOTAL HIP OTHR DR: Dr. Evaristo Bedolla MD Tissues: Hip, NOS Procedures: Decalcification bone/plaque Surgery Specimen Level IV HEADER OPERATION: ERAS, total hip anterior approach PRE-OP DIAGNOSIS: Right hip pain TISSUE SUBMITTED: Right hip bone and tissue MICROSCOPIC DIAGNOSIS Bone and tissue of right hip, total hip resection: Severe degenerative joint disease. AM:ashia 04/16/2023 MICROSCOPIC DESCRIPTION Slides are reviewed. GROSS DESCRIPTION Received is one container labeled with the patient's name and designated bone and tissue right hip. The specimen consists of a ojeda femoral head measuring 4.5 x 4.0 x 4.0 The articular surface displays prominent osteophyte formation, eburnation and bone erosion. Also present in the specimen container are multiple irregular fragments of bone and bone reamings measuring in aggregate 0.9 x 0.8 x 2.0 cm. A small amount of light ojeda soft tissue is present measuring 2.0 x 1.0 x 0.2 cm. Impregnating Machine Operator sections are submitted in two cassettes after decalcification as follows: 1 - soft tissue and bone reamings, 2 - femoral head. / AM:ashia 04/11/2023 TC:5 [facility]: [id number], [id number]
[2023-04-11] MEDS: TXA 1000mg in NS100 100ml (IVPB at Incision) 660 MG IV (08:53)
--- NOTE | 2023-04-11 09:40 | RAD_ITS ---
EXAM: XR RIGHT HIP WITH PELVIS WHEN PERFORMED, 1 VIEW CLINICAL INDICATION: PAIN TECHNIQUE: Frontal view of the right hip with pelvis when performed. COMPARISON: No relevant prior studies available. FINDINGS: BONES/JOINTS: Intraoperative images show placement of hip prosthesis in anatomic alignment. No displaced fracture. No destructive or sclerotic lesions. Note that overlapping bowel shadows may however obscure fine detail. Sacroiliac joint is unremarkable. No widening of the pubic symphysis. SOFT TISSUES: Unremarkable. No soft tissue swelling or gas. RAD/Hip 1 view with Pelvis IMPRESSION: Right hip prosthesis in anatomic alignment. Electronically Signed: Erwin Saha MD at 17:41 EDT ,
[2023-04-11] MEDS: TXA 1000mg in NS100 100ml (IVPB at Closure) 660 MG IV (09:53)
--- NOTE | 2023-04-11 09:57 | PCM.OPRPT ---
Report of Operation Date of Procedure: 04/11/23 Pre-Operative Diagnosis: Right hip primary osteoarthritis Post-Operative Diagnosis: Right hip primary osteoarthritis Surgery/Procedure Performed:: Right minimally invasive direct anterior total hip replacement Description of Surgical Findings:: Stable hip with equal leg length Surgeon: Juan M Ramírez wire machine cutter: Aryan Naik Type of Anesthesia: Spinal Anesthesiologist: Trey Ann Special Medications: 2 g Ancef, 1 g TXA at incision, 1 g TXA closure, 10 mg Decadron, joint cocktail (5 mg Duramorph, 30 mL of 0.5% Ropivicaine, 1000 units of epinephrine, 30 mg of Toradol) Specimen's removed: Bony cuts Estimated Blood Loss (mL): 250 Fluids Replaced: 1000 ml Description of Procedure: Components used: 1. [place] femoral stem size 2 HO 2. [place] trident 2 acetabular shell size 48 mm 3. [place] X3 polyethylene D 4. [place] Biolox delta 36mm, 2.5mm femoral head Brief history operative indications: 73 yo F who failed conservative measures for their hip osteoarthritis. X-rays were consistent with osteoarthritis including joint space narrowing, osteophyte formation and subchondral cysts. Total hip replacement was discussed with the patient with risks and benefits including but not limited to blood loss, DVTs, PEs, neurovascular damage, dislocation, general risks of anesthesia including loss of life. Patient demonstrated an understanding medical clearance is obtained the patient was consented for surgery. Procedure: On the date of procedure the patient's right hip was marked in the preoperative area. Patient was then taken back to the operating room where anesthesia assumed control of the C-spine and airway and administered anesthetic. Patient was transferred to the operating table and placed in the supine position. The hips were placed at the break of the bed and a sacral bump was placed. The right lower extremity was then prepped out in a sterile fashion using chlorhexidine while the surgeon scrubbed. The PA was vital in the positioning of the patient. Upon reentering the room the right lower extremity was draped in the standard orthopedic fashion and the incision was marked. A timeout was called and everyone agreed upon the side, the site, the procedure be performed, antibody given, and patient's identity. At this time incision was made through skin, subcutaneous tissue, and fat down to fascia. The fascia was then incised and the TFL was retracted laterally. A retractor was placed on the lateral border of the femoral neck. Attention was directed to the inferior portion of the approach and all crossing vessels were identified and appropriately coagulated. A retractor was then placed on the medial portion of the femoral neck. The anterior capsule was then cleared of all soft tissue and then H shaped capsulotomy was made. The retractors were then placed inside the capsule. The femoral neck was identified and a cleanup cut was made. At this time a power corkscrew was used to remove the femoral head. Attention was then turned toward the acetabulum where the soft tissues were appropriately retracted and the acetabulum was sequentially reamed to 48 mm. A 48 mm cup was then selected and impacted into place. Acetabular liner was impacted into place and locking mechanism was verified. The position of the acetabular cup was then verified under live fluoroscopy. Attention was then turned to the femur. Soft tissue releases on the medial and lateral femoral neck were appropriately done, the leg was externally rotated and lateralized. A Nice retractor was placed medially and proximally to the greater trochanter this allowed appropriate visualization and exposure of the femoral canal. Rongeour was then used to remove excess lateral bone. A canal finder and entry broach were used to open the proximal canal. Once we verified we were down the femoral canal we subsequently broached up to a size 2 femur. The appropriate neck was placed in the previously selected head was trialed with a 2.5 mm neck. Traction was pulled and the hip was reduced with internal rotation. Once it was appropriately reduced and stability was checked. There was minimal shuck, equal leg lengths and appropriate stability with hyperextension and external rotation as well as with 90? flexion and internal rotation. Fluoroscopy was then also used to verify the position of the components and leg lengths using the contralateral side for comparison. The trial components were then dislocated the proximal femur was again exposed and the components were removed from the wound. The final components were verified and opened. The wound was copiously irrigated out with normal saline. The acetabulum was checked for any residual debris. The final components were placed and impacted. Traction and internal rotation were again used to reduce the hip. After adequate reduction the hip remained stable with appropriate leg lengths. The final components were once again checked with live fluoroscopy and were found to be satisfactory. The wound was then copiously irrigated with normal saline once more, and hemostasis was obtained. Closure was then done using #1 Vicryl runner to close the fascia. A 2-0 vicryl interuppted sutures were used to close the subcutaneous skin. A 3-0 Monocryl and Steri-Strips were used for final skin closure. A Silverlon dressing was placed. Patient was awakened by anesthesia and transferred to the [facility]. Patient was then transferred to the PACU for recovery. During the course of the procedure the physician government operations consultant (PE) played a vital role. Their intimate knowledge of my steps in the procedure aided in safe and expedient completion of the procedure. The PE played a vital rolls in positioning particularly in obtaining the appropriate positioning of the sacral bump. The PE was also vital in the retraction of soft tissues during the exposure and especially the femoral work as this is a vital part of the procedure to prevent complications and fractures. The PE was also vital and protecting soft tissues during times of bony cuts and reaming. He also played a vital role in closure with my direct supervision. The PE was also important during reduction and dislocation of the joint and trials intraoperatively. Postoperative plan: Patient will get 24 hours postop antibiotics. Patient will get in-house physical therapy and will be weight-bear as tolerated. Patient will follow up in office in 2 weeks for a wound check and x-rays. Xarelto 10 mg daily for 2 weeks followed by 2 weeks of aspirin 81 mg p.o. twice daily secondary to previous VTE. Complications No intraoperative complications Admit VTE Documentation VTE Present on Admission: No VTE Mechan Device Prophylaxis: SCD's and Thigh High NADEEN Hose VTE Pharm Prophylaxis ordered?: Yes
[2023-04-11] MEDS: JPS (Morphine 10mg/ml) OPERA.SITE (10:01)
--- NOTE | 2023-04-11 13:17 | CON.PCM.HO_ITS ---
Assessment & Plan Assessment/Plan (1) Status post left hip replacement: PLAN: Plan This 73-year-old female is admitted electively after direct anterior right total hip replacement. 1. Right hip primary osteoarthritis status post minimally invasive direct anterior total hip replacement: Surgical dressing is dry. Patient does not have pain, numbness tingling. Right lower extremity neurovascular bundle intact. On pain control. PT and OT ordered. Incentive spirometry. DVT prophylaxis on rivaroxaban 10 mg daily. Postop BP slightly on lower side 97/54. Her baseline blood pressure is about 118/50. Patient is not on antihypertensive medications. On IV fluid Ringer lactate 125 mill per hour. 2. Chronic degenerative arthritis post left hip replacement in February 2021: Patient is doing well on left hip joint. No postop complication. 3. Mild depression and history of labyrinthitis: Patient is doing well and no active issues. Home medication reconciliation done. DVT prophylaxis patient on rivaroxaban 10 mg daily. HPI Consult Data Date of Consult: 04/11/23 Attending Care Provider: This is a 73-year-old female is being admitted electively after right hip anterior total replacement by Dr. Ramírez. Hospitalist service was consulted for medical management. The patient has history of degenerative arthritis status post left hip replacement in February 2021, labyrinthitis and mild depression. She has history of DVT when she was long time ago. She denies history of chronic heart disease, lung disease, stroke, PAD. She is not a smoker. She she had right hip pain for last 2 years, 8/10 intensity, exacerbated by walking, going up the stairs getting in and out of the car or laying on the right side. Pain was mainly located in the right groin and anterolateral hip region. Denies numbness tingling or claudication pain. She tried conservative management including topical ointment ibuprofen with temporary relief but all failed therefore patient decided for direct anterior right total hip replacement. Family history: History of heart disease on her mother side. No history of cancer. Currently patient does not have chest pain pressure tightness. No shortness of breath. No nausea or vomiting. She has external urethral catheter, purewick in about 200 ml light yellow color urine. Did not had bowel movement or flatus. HPI Narrative HPI Narrative: MAHESH SAVAGE, is a 73 F who presents [facility] Medical History Anemia Anxiety Arthritis Bladder disease DVT (deep venous thrombosis) Heartburn History of depression History of edema History of IBS History of pain when walking Migraine headache Non-smoker Restless legs Syncope Wears glasses Home Medications ascorbic acid (vitamin C) 500 mg tablet (Vitamin C) 500 mg PO DAILY supplement 02/25/21 [History Last Taken Unknown] cholecalciferol (vitamin D3) 50 mcg (2,000 unit) capsule (Vitamin D3) 50 mcg PO DAILY 02/25/21 [History Last Taken Unknown] elderberry fruit 200 mg capsule 200 mg PO DAILY supplement 02/25/21 [History Last Taken Unknown] sertraline 100 mg tablet 100 mg PO DAILY anxiety 02/25/21 [History Last Taken Unknown] food supplemt, lactose-reduced 0.06 gram-1 kcal/mL oral liquid (Boost High Protein) 100 ml PO DAILY 03/19/23 [History Last Taken Unknown] oxybutynin chloride 10 mg tablet,extended release 24 hr 10 mg PO DAILY 03/19/23 [History Last Taken Unknown] Allergy/AdvReac Type Severity Reaction Status Date / Time No Known Allergies Allergy Verified 04/11/23 06:44 Surgical History History of hysterectomy Hx of total hip arthroplasty Social History Smoking Status: Never smoker ROS ROS Narrative Constitutional: Chronic right hip pain. Status post surgery no fever. HEENT: Reports systems reviewed and no addt'l complaints, except as documented Respiratory/Chest: No acute shortness of breath or respiratory distress or wheezing. CVS: Denies chest pain or pressure. Gastrointestinal: Denies coffee ground emesis, hematemesis or vomiting Genitourinary: External urethral catheter. Denies burning urination or new uri nary tract symptoms Musculoskeletal: Chronic right hip joint pain and limited range of motion. No a cute injury. Status post left hip replacement Neurologic: Denies seizure-like symptoms. No history of a stroke. skin: No ulcer. No rash Endocrinology: Reports systems reviewed and no addt'l complaints, except as documented Hematologic/Lymphatic: Reports systems reviewed and no addt'l complaints, except as documented Rest 14 ROS are negative except as mentioned in HPI Physical Exam Narrative General: Alert, Oriented x3, Cooperative HEENT: Atraumatic, PERRLA, EOMI, Normocephalic Oral: Oral mucosa moist. No Gingival or Mucosal Lesions/ Ulcerations Neck: Supple, No JVD, Negative Carotid Bruits Lungs: Air entry diminished in bilateral lung bases. No crepitation/rhonchi Cardiovascular: Regular rate, Regular Rhythm, Normal S1, Normal S2, No murmurs Abdomen: Bowel Sounds Present, Soft, Non Tender, Non-Distended : No renal angle tenderness. No suprapubic tenderness. Extremities: No edema, Capillary Refill Less than 3 Seconds Skin: No rashes, No breakdown Musculoskeletal: Status post right hip replacement. Surgical dressing is dry. No bruise or hematoma. No Tenderness to Palpation of other joints or Extrem ities Neurological: Cranial nerves II-XII grossly intact, DTR 2+/4. No acute focal neurological defic Psych/Mental Status: Normal Affect, Appropriate. Lab / Micro Data 03/26/23 12:01 03/26/23 12:01 Labs: Laboratory Results - last 24 hr 04/11/23 07:22: POC Glucose 161 H Radiology Impression Hip X-Ray 04/11/23 06:54 IMPRESSION: Intraoperative imaging provided for total hip replacement. Electronically Signed: Warren Ayala MD at 12:03 EDT , Charges/Coding Visit Charges Office Visits / Consults: [id number] IP Consult L3
[2023-04-11] MEDS: Lactated Ringers 1,000 ML 125 ML IV (13:31)
[2023-04-11] MEDS: Cefazolin 1 GM/50 ML BAG IV (16:53)
[2023-04-11] MEDS: Senna/Docusate Sodium 1 Tablet 2 TABLET PO (22:51)
[2023-04-12] MEDS: Cefazolin 1 GM/50 ML BAG IV (00:43)
[2023-04-12 01:08] VITALS: BP 99/50; PULSE 61; RESP 18; TEMP 36.4; O2SAT 95
[2023-04-12 05:02] VITALS: BP 96/45; PULSE 61; RESP 18; TEMP 36.3; O2SAT 97
[2023-04-12] MEDS: Rivaroxaban 10 MG Tablet PO (05:48)
[2023-04-12 06:01] LABS: Hemoglobin 11.5 g/dL (12.0-15.0); Mean Corp Hgb Conc 31.9 g/dL (32-36); Mean Corpuscular Hgb 29.9 pg (27.0-32.0); Mean Corpuscular Volume 93.8 fL (81-99); Mean Platelet Vol. 10.4 fl (6.2-12.0); Platelet Count 207 K/mm3 (150-450); RBC Distribution Width CV 13.8 % (11.6-14.6); Red Blood Count 3.84 M/mm3 (4.2-5.4); White Blood Count 12.7 K/mm3 (4.4-11.0)
[2023-04-12 06:34] LABS: Anion Gap 3 (5-15); BUN 16 mg/dL (7-18); BUN/Creat Ratio 24.6 RATIO (10-20); Calcium,Total 8.7 mg/dL (8.5-10.1); Chloride 109 mmol/L (98-107); Creatinine, Serum 0.65 mg/dL (0.55-1.02); EST Glomerular Filtration Rate 95 mL/min (>60); Est Glom Filt Rate - Afr Amer 114 mL/min (>60); Estimated Creatinine Clearance 37.24 ml/min; Glucose 128 mg/dL (74-106); Potassium 4.6 mmol/L (3.5-5.1); Sodium Level 140 mmol/L (136-145)
[2023-04-12] MEDS: Acetaminophen 500 MG Tablet 1000 MG PO ×2 (06:39→15:13)
[2023-04-12 09:02] VITALS: BP 112/36; PULSE 76; RESP 18; TEMP 36.4; O2SAT 100
[2023-04-12] MEDS: Senna/Docusate Sodium 1 Tablet 2 TABLET PO (09:05)
[2023-04-12] MEDS: Sertraline 100 MG Tablet PO (09:06)
[2023-04-12] MEDS: Cholecalciferol (VIT D3) 25 MCG TABLET (1,000 UNITS) 50 MCG PO (09:06)
[2023-04-12] MEDS: Tolterodine Tartrate 2 MG CAP.SA PO (09:06)
[2023-04-12] MEDS: Ascorbic Acid 500 MG Tablet PO (09:06)
[2023-04-12] MEDS: Famotidine 20 MG Tablet PO (09:06)
--- NOTE | 2023-04-12 10:51 | PCM.PN.ORT ---
Subjective Subjective The patient was sitting in bedside chair upon examination just finishing physical therapy. She did well with physical therapy. Patient denies any chest pain, shortness of breath, dizziness, lightheadedness, nausea or vomiting, or calf pain. Pain is controlled on medications. No adverse overnight events. Patient has had some lower blood pressure readings and she states she does run lower at home. She is able to check her blood pressure with device at home. She currently denied any dizziness or lightheadedness with physical therapy and walking. She is not on any antihypertensive medications. Patient does wish to try to go home. Objective Data Objective Data Vital Signs: Vital Signs Temp Pulse Resp BP Pulse Ox O2 Del Method O2 Flow Rate 97.6 F L 76 18 112/36 L 100 Room Air 4 04/12/23 09:02 04/12/23 09:02 04/12/23 09:02 04/12/23 09:02 04/12/23 09:02 04/12/23 09:02 04/11/23 12:30 Oxygen Flow Rate (L/min) 4 Oxygen Delivery Method Room Air Weight: 81 kg Body Mass Index (BMI) 33.7 Intake & Output: Intake and Output for Last 24 Hours 04/10/23 04/11/23 04/12/23 23:59 23:59 23:59 Intake Total 2942.42 / 3042.42 395.75 / 395.75 Output Total 1500 / 1750 1000 / 1000 Balance 1442.42 / 1292.42 -604.25 / -604.25 Lab / Micro Data 04/12/23 05:22 04/12/23 05:22 Labs: Laboratory Results - last 24 hr 04/12/23 05:22: WBC 12.7 H, RBC 3.84 L, Hgb 11.5 L, Hct 36.0 L, MCV 93.8, MCH 29.9, MCHC 31.9 L, RDW Std Deviation 47.0 H, RDW Coeff of Nguyen 13.8, Plt Count 207, MPV 10.4, Sodium 140, Potassium 4.6, Chloride 109 H, Carbon Dioxide 28.0, Anion Gap 3 L, BUN 16, Creatinine 0.65, Estim Creat Clear Calc 37.24, Est GFR (MDRD) Af Amer 114, Est GFR (MDRD) Non-Af 95, BUN/Creatinine Ratio 24.6 H, Glucose 128 H, Calcium 8.7 Micro: Microbiology 03/26/23 12:01 Swab (Method) Nasal Screen MRSA/MSSA - Final Radiography Diagnostic Testing: Radiology Impression Hip X-Ray 04/11/23 06:54 IMPRESSION: Intraoperative imaging provided for total hip replacement. Electronically Signed: Warren Ayala MD at 12:03 EDT , Hip/Pelvis X-Ray 04/11/23 09:40 IMPRESSION: Right hip prosthesis in anatomic alignment. Electronically Signed: Erwin Saha MD at 17:41 EDT , Physical Exam Narrative Vital signs stable and afebrile. Most recent blood pressure 112/36. Right hip is soft and supple SCDs and NADEEN hose are in place bilaterally Patient is able to plantarflex and dorsiflex actively. Sensation is intact to light touch to saphenous, sural, superficial and deep peroneal, and tibial distribution. Dressing is clean dry and intact. Negative Homans bilaterally, negative signs and symptoms of DVT. Const alert, oriented x3 and no apparent distress Assessment & Plan Assessment/Plan (1) S/P total right hip arthroplasty: PLAN: Plan 1. S/P right direct anterior total hip arthroplasty POD #1 2. Continue Pain Medications: Tylenol, meloxicam, oxycodone. Patient reports that she does have oxycodone at home from previous surgery. She will also hold off of the meloxicam while on the Xarelto for 2 weeks postoperatively. 3. DVT Prophylaxis: Xarelto 10 mg once daily for 2 weeks postoperatively due to previous history of DVT. After 2 weeks she will be then placed on 81 mg aspirin twice daily for an additional 2 weeks. I discussed with her holding the meloxicam while taking the Xarelto. She voiced understanding agreement. 4. PT/OT: Weightbearing as tolerated 5. H & H: 11.5/36.0, asymptomatic. Currently monitoring hemoglobin/hematocrit with postoperative anemia without any intra operative complications. No treatment is required at this time. 6. Reactive leukocytosis: Currently 12.7, afebrile. Patient did receive Decadron intraoperatively 7. Continue postoperative medical management per medicine: Case was discussed with medicine. They have yet to see the patient today. As long as she is stable and cleared by medicine plan will be for discharge home today. 8. Encouraged Incentive Spirometry 9. Disposition: Plan will be for probable discharge home this afternoon as long as pain is well controlled, tolerates therapy and medically stable. Medicine will see the patient today and give recommendations for discharge planning. If she is medically stable plan will be for discharge home today. Recommend patient continue to monitor her blood pressure while at home. She would like her prescriptions E scribed to [facility]. She has outpatient physical therapy established. She will follow-up per postop instructions. Upon discharge she will contact her office with any concerns or questions. I have reviewed the [place] Autom[employer] Rx Reporting System (OARRS) report for this patient for refill pattern and other prescriber involvement as part of the appropriate surveillance for the provision of acute and chronic controlled medications. The report was requested and reviewed on the date of this entry and was considered in the prescribing process. This dictation was created using voice recognition software. Phonetic and/or grammatical errors may exist.
--- NOTE | 2023-04-12 11:18 | PCM.DC ---
Discharge Instructions Diet Discharge Diet: No restrictions Activity Discharge Activity: May Not Drive (No driving for 6 weeks postoperatively. Must also be off all narcotics and able to walk 100 feet without the use of cane or walker.) May shower in (days): 1 (only if incision is dry and without drainage. Do NOT soak/submerge in tub/pool/webb/stream/hot tub.)) Ice area for (Minutes): 20 (Every 1-2 hours while awake[address] barrier between ice and skin.) Weight Bearing Status: Weight bearing as tolerated Keep extremity elevated above heart level: Operative Extremity Additional Activity Instructions:: Follow [facility] Post-op Instructions. Once postoperative dressing has been removed only use gentle soap and water over the incision. Do not use any ointments, Neosporin, salves, alcohol pads over the incision for 6 weeks postoperatively. Do not submerge underwater for 6 weeks postoperatively. Wear elastic stockings for 2 weeks. Do NOT use alcohol with narcotic pain medication. Do NOT make important decisions while taking narcotic medication. If you have problems with taking your medication (rash, itching, nausea, etc.) call the office at once. Dressing / Incision Call your doctor if your incision/area has: Continuous Slow Oozing, Sudden Increased Bleeding, Increased Pain/ Swelling, Increased Redness and Foul Smelling Discharge Call your doctor if you observe: Fever of 101 or Higher, Shortness of breath, Chest pain, Calf discomfort and Uncontrolled pain Remove Dressing in: 4 days (Okay to remove dressing on April 16, 2023) Additional Dressing/Incision Instructions:: Follow [facility] Post-op Instructions. Once postoperative dressing has been removed, only use gentle soap and water over the incision. Do not use any ointments, Neosporin, salves, alcohol pads over the incision for 6 weeks postoperatively. Do not submerge underwater for 6 weeks postoperatively. Continue with NADEEN hose/elastic stockings for 2 weeks postoperatively. May remove at nighttime but needs to be placed back on the leg during the day. Do NOT use alcohol with narcotic pain medication. Do NOT make important decisions while taking narcotic medication. If you have problems with taking your medication (rash, itching, nausea, etc.) call the office at once. Follow Up Care Test Results: Test results from this visit will be discussed in further detail at your follow-up appointment, if applicable. Discharge Plan Admission Admit Date/Time: 04/11/23 06:53 Attending Provider: Juan M Ramírez Primary Care Provider: Evaristo Bedolla Consulting Providers: Javier Short Discharge Orders/Prescriptions Prescriptions: New acetaminophen 500 mg Tablet 1,000 mg PO Q8H 14 Days Qty: 84 0RF Rx Instructions: Do not take more than 3000 mg Tylenol in a 24-hour period. famotidine 20 mg Tablet 20 mg PO DAILY Qty: 30 0RF meloxicam 7.5 mg Tablet 7.5 mg PO BID Qty: 30 0RF Rx Instructions: Do not take any other nonsteroidal anti-inflammatories while using meloxicam/Mobic. Hold this medication until finished with Xarelto postoperatively sennosides-docusate sodium [Stool Softener-Stimulant Laxat] 8.6-50 mg Tablet 2 tab PO BID Qty: 0 0RF Rx Instructions: Take until first bowel movement, then as needed oxycodone 5 mg Tablet 5 mg PO Q4H PRN PRN (Reason: Pain Score 4-10) Qty: 0 0RF Rx Instructions: Take 1 tablet every 4 hours as needed for pain Xarelto 10 mg Tablet 10 mg PO DAILY@0600 13 Days Qty: 13 0RF Rx Instructions: Take for 2 weeks postoperatively for DVT prophylaxis Continued sertraline 100 mg Tablet 100 mg PO DAILY ascorbic acid (vitamin C) [Vitamin C] 500 mg Tablet 500 mg PO DAILY elderberry fruit 200 mg Capsule 200 mg PO DAILY cholecalciferol (vitamin D3) [Vitamin D3] 50 mcg (2,000 unit) Capsule 50 mcg PO DAILY oxybutynin chloride 10 mg tablet extended release 24hr 10 mg PO DAILY Boost High Protein 0.06 gram- 1 kcal/mL liquid 100 ml PO DAILY Referrals / Follow Up: Evaristo Bedolla MD [Primary Care Provider] - Physical,Therapy [Other] - 04/16/23 11:00 am Aryan Naik PA-C [Med Staff - [facility] Practice Prof] - 04/26/23 10:15 am Disposition Disposition (needs filled in before D/C Order can be placed): Home, Self Care
--- NOTE | 2023-04-12 11:30 | CASEMGMT ---
Addendum entered by Matilde Hansen 04/12/23 11:48: TC to [facility], cost for jewel is $20.41. Original Note: NOHEMI BURRELL Assessment: Face to Face with pt for initial transition planning/care coordination assessment. NOHEMI BURRELL introduced self and role at [facility], pt voices understanding and consents to assessment. Pt is A/O x4 and answers all questions appropriately at this time. Pt sitting up in chair in no distress. Care providers, pharmacy, and demographics verified/updated. Admitting Dx: Rt total hip anterior approach PCP:Graeme Specialists:linda Ramírez Pharmacy: [facility] Insurance: [employer] Prescription Benefit: yes LNOK: Orville Cerna, Living Arrangements: Pt lives with in a mobile home with 5 steps to enter with a rail on both sides. Pt reports she was I in ADL's but had difficulty with lower body dressing and used a shoehorn. Pt states her is not able to assist her d/t his health but her dtr is coming to stay with her to assist for a couple of weeks. Pt denies concerns at home. Transportation: Pt drives self and denies concerns with transportation. Pt dtr to transport pt to medical appts until pt can drive again. DME/HHC/SNF: Pt has a shower chair and cane. Pt is borrowing a FWW from her [employer]. Her dtr will pick this up today. Pt denies hx of HHC or SNF stays. Pt states no concerns with going home at time of dc. Pt has outpt therapy set up at [facility] on Sunday. Pt states no further concerns/needs. CM to follow. Advised pt to ask CM if any further question/concerns/needs arise, voices understanding. Pt Goal: Home with outpt therapy set up Plan: Home with outpt therapy set up
--- NOTE | 2023-04-12 12:21 | PHA.DC.MC.R ---
Pharmacy [facility] has performed discharge medication reconciliation and counseling for this patient. The patient was counseled on the following discharge medications and changes in medications for homegoing were reviewed. 1. TYLENOL 2. SENNA-S 3. PEPCID 4. MOBIC 5. OXYCODONE 6. XARELTO The Reason for Use, instructions for use, and potential side effects were reviewed for all new medications. The patient's questions regarding all of their medications were answered. The patient was able to verbally demonstrate an understanding of their discharge medications. The patient's discharge medication list was reviewed for discrepancies and discrepancies were resolved. Patient counselled by Dafne Orosco, NaomiD Candidate Medications at Discharge Home Medications ascorbic acid (vitamin C) 500 mg tablet (Vitamin C) 500 mg PO DAILY supplement 02/25/21 cholecalciferol (vitamin D3) 50 mcg (2,000 unit) capsule (Vitamin D3) 50 mcg PO DAILY 02/25/21 elderberry fruit 200 mg capsule 200 mg PO DAILY supplement 02/25/21 sertraline 100 mg tablet 100 mg PO DAILY anxiety 02/25/21 food supplemt, lactose-reduced 0.06 gram-1 kcal/mL oral liquid (Boost High Protein) 100 ml PO DAILY 03/19/23 oxybutynin chloride 10 mg tablet,extended release 24 hr 10 mg PO DAILY 03/19/23 acetaminophen 500 mg tablet 1,000 mg (2 x 500 mg) PO Q8H 14 days #84 tabs 04/12/23 famotidine 20 mg tablet 20 mg PO DAILY #30 tabs 04/12/23 meloxicam 7.5 mg tablet 7.5 mg PO BID #30 tabs 04/12/23 oxycodone 5 mg tablet 5 mg PO Q4H PRN PRN Pain Score 4-10 #0 tabs 04/12/23 rivaroxaban 10 mg tablet (Xarelto) 10 mg PO DAILY@0600 13 days #13 tabs 04/12/23 sennosides 8.6 mg-docusate sodium 50 mg tablet (Stool Softener-Stimulant Laxative) 2 tab PO BID #0 tabs 04/12/23
[2023-04-12 12:28] VITALS: BP 103/35; PULSE 65; RESP 18; TEMP 36.7; O2SAT 98
--- NOTE | 2023-04-12 13:34 | PCM.PN.HOSP ---
Reason for Visit Reason for Visit: Diagnoses Encounter for other preprocedural examination (04/11/23) Presence of right artificial hip joint (04/11/23) Presence of left artificial hip joint (04/11/23) Subjective Subjective Feels well. Some pain in right hip. Objective Data Objective Data Vital Signs: Vital Signs Temp Pulse Resp BP Pulse Ox O2 Del Method O2 Flow Rate 36.7 C 65 18 103/35 L 98 Room Air 4 04/12/23 12:28 04/12/23 12:28 04/12/23 12:28 04/12/23 12:28 04/12/23 12:28 04/12/23 12:28 04/11/23 12:30 Oxygen Flow Rate (L/min) 4 Oxygen Delivery Method Room Air Weight: 81 kg Body Mass Index (BMI) 33.7 Intake & Output: Intake and Output for Last 24 Hours 04/10/23 04/11/23 04/12/23 23:59 23:59 23:59 Intake Total 2942.42 / 3042.42 395.75 / 395.75 Output Total 1500 / 1750 1999 Balance 1442.42 / 1292.42 -1604.25 / -1604.25 Lab / Micro Data 04/12/23 05:22 04/12/23 05:22 Labs: Laboratory Results - last 24 hr 04/12/23 05:22: WBC 12.7 H, RBC 3.84 L, Hgb 11.5 L, Hct 36.0 L, MCV 93.8, MCH 29.9, MCHC 31.9 L, RDW Std Deviation 47.0 H, RDW Coeff of Nguyen 13.8, Plt Count 207, MPV 10.4, Sodium 140, Potassium 4.6, Chloride 109 H, Carbon Dioxide 28.0, Anion Gap 3 L, BUN 16, Creatinine 0.65, Estim Creat Clear Calc 37.24, Est GFR (MDRD) Af Amer 114, Est GFR (MDRD) Non-Af 95, BUN/Creatinine Ratio 24.6 H, Glucose 128 H, Calcium 8.7 Micro: Microbiology 03/26/23 12:01 Swab (Method) Nasal Screen MRSA/MSSA - Final Radiography Diagnostic Testing: Radiology Impression Hip/Pelvis X-Ray 04/11/23 09:40 IMPRESSION: Right hip prosthesis in anatomic alignment. Electronically Signed: Erwin Saha MD at 17:41 EDT , Physical Exam Const alert and no apparent distress HEENT head/scalp atraumatic and moist oral mucous membranes Resp normal respiratory effort, no retractions, no use of accessory muscles and clear to auscultation bilaterally Cardio regular rate, regular rhythm, S1 normal heart sound and S2 normal heart sound GI normal to inspection, nondistended, normoactive bowel sounds, soft to palpation, non-tender and non-distended Extremity normal to inspection Assessment & Plan Assessment/Plan (1) Hypotension: QUALIFIERS: Hypotension type: unspecified hypotension type Qualified Code(s): I95.9 - Hypotension, unspecified PLAN: chronic stable. asymptomatic no additional work up JOSE Naik--ok to dc from a medical stand point. Charges/Coding Visit Charges Inpatient E&M: 71151 Subs Hosp L2
== END 2023-04-12 15:45 | disposition home or self-care (01) ==
LOC: MS3 04-12 07:06 → SDC 04-12 10:24 → MS3 04-12 10:25
PROVIDERS: Anesthesiology; Admitting Provider Specialist; PCP Family Medicine; Referring Provider Specialist; Visit Provider Specialist
PROC: (CPT 27284; principal; 2023-04-11 08:20)
DX: M16.11 Unilateral primary osteoarthritis, right hip (principal); F32.A Depression, unspecified; I95.9 Hypotension, unspecified; Z86.718 Personal history of other venous thrombosis and embolism; Z86.711 Personal history of pulmonary embolism; Z79.899 Other long term (current) drug therapy; F41.9 Anxiety disorder, unspecified
CPT/HCPCS: 27130; 01214; 36415; 73501; 73502; 76000; 80048; 82040; 82962; 83735; 85025; 85027; 87081; 88305; 88311; 93005; 94668; 96361; 96365; 96366; 97110; 97116; 97162; 97166; 97530; 97535; 99221; 99252; C1776; J7120; G0378; G0463; J2405; J3475